=== PATIENT | female | born 1995 | race African-American/Black ===

== ENCOUNTER 2022-08-01 05:21 | Emergency (ER) | payer OTHER, SELFPAY ==
[2022-08-01 05:32] VITALS: BP 140/68; PULSE 110; O2SAT 97
[2022-08-01 05:37] VITALS: BP 133/88; PULSE 88; RESP 16; TEMP 36.8; O2SAT 99; BMI 24.8
[2022-08-01 05:43] VITALS: BP 135/88; PULSE 77; RESP 18; TEMP 36.9; O2SAT 99
--- NOTE | 2022-08-01 05:48 | PC.NURSE ---
patient came into the ER c/o having a migraine patient is sensitive to light patient is AAOX4 patient is stated she has been having pain since 2199 yesterday patient will continue to be monitored for safety
--- NOTE | 2022-08-01 06:57 | ED.HA ---
HPI - Headache General Chief Complaint: Headache Stated Complaint: delgado/nausea Time Seen by Provider: 08/01/22 06:31 Source: patient Mode of arrival: ambulatory Limitations: no limitations History of Present Illness HPI Narrative: 26-year-old female with history of anxiety and migraines presents to the ER for evaluation of a migraine that started 10:00 o'clock last night. She states she has a headache across her entire forehead. It is worse with any movement or light. She is nauseous and dry heaves but has not vomited. She denies any weakness, numbness, tingling. She states she tried a dose of ibuprofen and Tylenol with no relief last night. She came to the ER for further evaluation. She states she has been getting headaches since she was a child. She states her mother also gets headaches and has been hospitalized in the past. She states her blood pressure is usually on the lower side and was in the 140s when she came to the emergency department. She is wondering if this is also contributing to her headache. MD elicited complaint: migraine Pertinent past history: migraines Onset (ago): hour(s) (9) Time: 22:00 Onset description: gradually Location: frontal Severity: severe Quality & Timing: aching, dull and constant Exacerbating factors: exertion, movement of head/neck, light and noise Relieving factors: nothing Context: occurred at rest Associated symptoms: nausea Treatments prior to arrival: acetaminophen and ibuprofen Related Data Previous Rx's Medication Instructions Recorded vunqkfekcm-ralgxizbdsqyi-gnyfgoif 1 cap PO Q6H PRN headache #10 caps 08/01/22 50 mg-300 mg-40 mg capsule (Fioricet) Allergies Allergy/AdvReac Type Severity Reaction Status Date / Time No Known Allergies Allergy Verified 08/01/22 05:42 Review of Systems Review of Systems: Yes all other systems are reviewed and are negative PMFSH Social History Social History Alcohol intake: never Smoked in Last 30 Days: No Use of substances other than those prescribed or required for medical reasons: No Advance Directives: No Advance Directives Information Provided: Yes Patient : No Physical Exam Vital Signs: Vital Signs: Last Vital Signs Temp 98.4 F 08/01/22 05:43 Pulse 79 08/01/22 09:32 Resp 16 08/01/22 09:32 BP 93/41 L 08/01/22 09:32 Pulse Ox 98 08/01/22 09:32 O2 Del Method Room Air 08/01/22 09:32 BMI result Body Mass Index 24.8 Appearance: Alert. Oriented X3. No acute distress. Head: normocephalic, atraumatic. Eyes: Pupils equal, round and reactive to light. ENT: Pharynx normal. No tonsillar swelling or exudate. Neck: Normal inspection. Neck supple. CVS: Normal heart rate and rhythm. Pulses normal. Respiratory: No respiratory distress. Breath sounds normal. Abdomen: Soft and nontender. +BS x4 Skin: Skin warm and dry. Normal skin color. Normal skin turgor. No rashes. Extremities: No lower extremity edema. No joint swelling. Neuro/psych: Oriented X 3. No motor deficit. No sensory deficit. CN II-XII intact. Normal speech and cognition. Medications Administered Discontinued Medications Generic Name Dose Route Start Last Admin Trade Name Freq PRN Reason Stop Dose Admin Diphenhydramine HCl 50 mg 08/01/22 06:52 08/01/22 07:26 Diphenhydramine Hcl 50 Mg/Ml Vial IVPUSH 08/01/22 06:53 50 mg ONCE ONE Administration Sodium Chloride 1,000 mls @ 999 mls/hr 08/01/22 07:00 08/01/22 07:26 Ns IV 08/01/22 08:00 999 mls/hr .Q1H1M GHASSAN Administration Ketorolac Tromethamine 30 mg 08/01/22 06:52 08/01/22 07:25 Ketorolac Tromethamine 30 Mg/Ml Vial IVPUSH 08/01/22 06:53 30 mg ONCE ONE Administration Metoclopramide HCl 10 mg 08/01/22 06:52 08/01/22 07:26 Metoclopramide Hcl 10 Mg/2 Ml Vial IVPUSH 08/01/22 06:53 10 mg ONCE ONE Administration Sumatriptan Succinate 6 mg 08/01/22 09:48 08/01/22 10:08 Sumatriptan Succinate 6 Mg/0.5 Ml Vial SUBCUT 08/01/22 09:49 6 mg ONCE ONE Administration Medical Decision Making Medical Decision Making MDM Narrative: 26-year-old female presents to the ER for evaluation of headache that started last night at 10:00. It is associated with nausea photophobia. She has no neurological deficits. She has not had a migraine in a very long time. She has no neck pain or nuchal rigidity on examination. She was treated with IV Toradol, Benadryl, and Reglan with only minor improvement. She was then given Imitrex subQ with improvement. She is feeling much better. At this time she is stable for discharge home with outpatient follow-up. Will discharge with prescription for oral Fioricet p.r.n.. Patient agrees with plan. Differential Diagnosis Differential Diagnoses: The differential diagnosis associated with the presentation includes Migraine headache, cluster headache, tension headache, general headache Tests considered The following testing was considered but not selected: CT scan of the head was considered however she had improvement with medical treatment. Prescription Management I considered prescription management with: Pain Medication Chronic Conditions Patient?s care impacted by: Other (Migraine headaches) Critical Care Time Critical Care Time Critical Care Time: No Discharge Plan Discharge Clinical Impression: Migraine Patient Disposition: Home, Self-Care Instructions: Migraine Headache (ED) Additional Instructions: Take the prescribed medication as needed for headaches. Rest and drink plenty of fluids today. Follow-up with your doctor. If you develop new or worsening symptoms call 911 or come back to the ER for further evaluation. Prescriptions: New thypxuiggt-aiyeyqptukhpu-luvv [Fioricet] 50-300-40 mg capsule 1 cap PO Q6H PRN (Reason: headache) Qty: 10 0RF Stand Alone Forms: Work/School Release
[2022-08-01] MEDS: Ketorolac Tromethamine 30 MG/ML VIAL IVPUSH (07:25)
[2022-08-01] MEDS: diphenhydrAMINE HCL 50 MG/ML VIAL IVPUSH (07:26)
[2022-08-01] MEDS: Metoclopramide HCl 10 MG/2 ML VIAL IVPUSH (07:26)
[2022-08-01] MEDS: 0.9 % Sodium Chloride 1,000 ML 999 ML IV (07:26)
[2022-08-01 09:32] VITALS: BP 93/41; PULSE 79; RESP 16; O2SAT 98
[2022-08-01] MEDS: SUMAtriptan succinate 6 MG/0.5 ML VIAL SUBCUT (10:08)
== END 2022-08-01 13:01 | disposition home or self-care (01) ==
PROVIDERS: Emergency Provider Internal Medicine
DX: G43.909 Migraine, unspecified, not intractable, without status migrainosus (principal); R11.2 Nausea with vomiting, unspecified
CPT/HCPCS: 96372; 96374; 96375; 99284; 99285; J1200; J1885; J2765; J3030

== ENCOUNTER 2025-02-11 03:01 | Emergency (ER) | payer OTHER, SELFPAY ==
--- NOTE | 2025-02-11 | ECG_ITS ---
Test Reason : SOB Blood Pressure : */* mmHG Vent. Rate : 72 BPM Atrial Rate : 72 BPM P-R Int : 162 ms QRS Dur : 90 ms QT Int : 374 ms P-R-T Axes : 42 27 23 degrees QTcB Int : 409 ms Normal sinus rhythm with sinus arrhythmia Normal ECG No previous ECGs available Referred By: Generic ED Physician Electronically Signed By: MARIO BRUCE MD
--- NOTE | ~2025-02-11 | XR_ITS ---
CLINICAL HISTORY: sob Chest X-ray, 2 Views COMPARISON: None provided FINDINGS: No consolidation. No pleural effusion. No pneumothorax. No cardiomegaly. No acute fracture. IMPRESSION: No acute findings. This document has been electronically signed by: John Becerril MD on 02/11/2025 04:00:56
--- NOTE | ~2025-02-11 | CT_ITS ---
EXAMINATION: CT CHEST ANGIOGRAPHY WITH IV CONTRAST INDICATION: dyspnea, surgery with blood thinner non comp COMPARISON: Correlation is made with PA and lateral views of the chest performed earlier in the day. TECHNIQUE: Helical CT scan of the chest was performed following administration of intravenous contrast (65 mL Omnipaque 350). The contrast bolus was timed to optimally opacify the pulmonary arteries. Thin sections were obtained through the pulmonary arteries. Coronal and sagittal reformatted images were generated. 3D/MIP reconstructed images are also obtained and reviewed. This CT exam was performed with one or more of the following dose reduction techniques: automated exposure control, adjustment of the mA and/or kV according to patient size, use of iterative reconstruction technique. DLP: 312 mGy-cm CHEST: THYROID: The thyroid gland is unremarkable. PULMONARY ARTERIES: No intraluminal filling defects are identified within the pulmonary arteries to suggest pulmonary emboli. LUNGS: The lungs are clear. MEDIASTINUM: There is no mediastinal lymphadenopathy. JAMES: There is no hilar lymphadenopathy. CARDIOVASCULATURE: The heart is normal in size. There is no pericardial effusion. The thoracic aorta is normal in caliber. DEGREE OF CORONARY CALCIFICATION: not evaluable, due to dense contrast in the coronary arteries. PLEURA: There is no pleural effusion. No pneumothorax. MAIN AIRWAYS: The mainstem bronchi and proximal branches are patent. AXILLA: There is no axillary lymphadenopathy. UPPER ABDOMEN: The visualized portions of the liver, spleen, and adrenals are unremarkable. BONES AND SOFT TISSUES: Unremarkable. CT/CT angio chest PE protocol IMPRESSION: No evidence of pulmonary emboli. Unremarkable CTA of the chest. Electronically signed by: Mio Sawant MD 02/11/2025 11:11 AM [facility]
[2025-02-11 03:05] VITALS: BP 120/58; PULSE 94; RESP 18; TEMP 36.5; O2SAT 100; BMI 33.5
[2025-02-11 05:18] VITALS: BP 109/67; PULSE 86; RESP 16; TEMP 36.8; O2SAT 100
[2025-02-11 05:32] LABS: Resp Syncy Virus RNA Qual PCR NEGATIVE (Negative); SARS COV2 PCR INHOUSE NEGATIVE (Negative)
--- NOTE | 2025-02-11 05:41 | ED.SOB ---
HPI - SOB/Dyspnea General Chief Complaint: Dyspnea Stated Complaint: SOB Time Seen by Provider: 02/11/25 04:39 Source: patient Mode of arrival: ambulatory Limitations: no limitations History of Present Illness ED Provider: Dr. Ivette Fernandez HPI Narrative: 29-year-old female who was well until ~20:00 last night when she noticed sudden shortness of breath while talking with a coworker at work. She went home at 23:00, took a hot shower for steam, and used her rescue inhaler (previously prescribed after a prior surgery); this gave partial relief. She laid down but symptoms persisted. Around 01:30 she developed left-sided anterior chest tightness described as ?thundering,? worse with inspiration. No preceding exertion, stress, or typical anxiety triggers. Took Klonopin for anxiety and Motrin for discomfort without improvement. Presented to ED when symptoms did not improve. Additional history: congestion on Friday that resolved; past three days produced greenish phlegm without fever. Denies current cough, nausea, vomiting, diarrhea, abdominal pain. No leg swelling or calf pain. Reports sensation of something ?stuck? in throat currently. Known anxiety; childhood asthma only. No other chronic medical problems. Minor gastric procedure for pancreatitis on first Friday; was given Xarelto post-op but discontinued after ~1 week (did not complete recommended 6 weeks). Related Data Previous Rx's ?Medication ?Instructions ?Recorded szaiqojbmn-tgbffjmaxbaxf-vxzjrzol 1 tab PO Q6H PRN headache #10 tabs 08/01/22 50 mg-325 mg-40 mg tablet potassium chloride 20 mEq oral 20 meq PO BID #30 ea 02/11/25 packet prednisone 50 mg tablet 50 mg PO DAILY 5 days #5 tabs 02/11/25 Allergies Allergy/AdvReac Type Severity Reaction Status Date / Time No Known Allergies Allergy Verified 02/11/25 03:07 [facility] Social History Social History Alcohol intake: never Smoked in Last 30 Days: No Use of substances other than those prescribed or required for medical reasons: No Advance Directives: No Patient : No Physical Exam Vital Signs: Vital Signs: Last Vital Signs Temp 98.3 F 02/11/25 08:17 Pulse 100 02/11/25 08:17 Resp 14 02/11/25 08:17 BP 105/49 L 02/11/25 08:17 Pulse Ox 98 02/11/25 08:17 O2 Del Method Room Air 02/11/25 08:17 BMI result Body Mass Index 33.5 Course Reevaluation(s) Reevaluation #1: 8:37 AM 02/11/2025 (Dr. Gianni Brewster): D-dimer positive, hypokalemic, patient updated, we will obtain CTA, in October had gastric release for plantar fasciitis, was supposed to be on blood thinners but states did not take them Medications Administered Discontinued Medications Generic Name Dose Route Start Last Admin Trade Name Freq PRN Reason Stop Dose Admin Albuterol Sulfate 2.5 mg/ 0 mg 02/11/25 06:16 02/11/25 06:29 Albuterol/Ipratropium 3 ml INHALE 02/11/25 06:17 1 dose ONCE ONE Administration Diazepam 2 mg 02/11/25 06:16 02/11/25 06:34 Diazepam 2 Mg Tablet PO 02/11/25 06:17 2 mg ONCE ONE Administration Iohexol 100 ml 02/11/25 10:44 02/11/25 10:44 Iohexol 350 Mg/Ml 100 Ml Infus..Btl IV 02/11/25 10:45 65 ml ONCE ONE Administration Potassium Chloride 10 meq 02/11/25 08:35 02/11/25 09:20 Potassium Chloride Er 10 Meq Tablet.Er PO 02/11/25 08:36 10 meq ONCE ONE Administration Potassium Chloride 40 meq 02/11/25 08:35 02/11/25 09:20 Potassium Chloride Packet 20 Meq Packet PO 02/11/25 08:36 40 meq ONCE ONE Administration Prednisone 50 mg 02/11/25 06:16 02/11/25 06:34 Prednisone 10 Mg Tablet PO 02/11/25 06:17 50 mg ONCE ONE Administration Medical Decision Making Medical Decision Making MDM Narrative: 29-year-old female with acute onset shortness of breath and pleuritic chest discomfort. Normal vitals, normal ECG, clear lungs, flu negative. Differential discussed with patient includes viral upper/lower respiratory infection vs. early bronchitis with reactive airway component, asthma exacerbation, anxiety-related symptoms; pulmonary embolism felt unlikely clinically but discussed with shared decision making. Problem #1: Pleuritic chest pain / Shortness of breath (suspected viral bronchitis vs. reactive airway) Assessment: Sudden onset last night; pleuritic quality; exam clear; O2 sat 100 %. Likely inflammatory/reactive process associated with recent URI exposure; asthma component possible. Plan: - Administer nebulized bronchodilator treatment in ED; monitor response. - Initiate short course of oral prednisone; staff counselor patient to take with food. - Provide additional analgesia for chest discomfort (medication administered in ED, unspecified). - May provide medication to help relax chest muscles if needed, per provider-patient discussion. - Discharge home if symptoms improve and vitals remain stable; return for worsening shortness of breath, chest pain, or new symptoms. Problem #2: Rule out Pulmonary Embolism Assessment: Recent minor surgery ~3 months ago with brief Xarelto course; otherwise low-risk per PERC; vitals and exam not suggestive; patient informed of options (D-dimer/CTA vs. watchful waiting). Plan: - Shared decision making: defer immediate D-dimer/CTA; proceed with symptomatic treatment. - Instruct patient to return immediately for worsening symptoms or new risk features. Problem #3: Generalized Anxiety Disorder Assessment: History of anxiety; current episode differs from typical panic attacks. Plan: - Reassurance provided. Follow-up: Return to ED for increased chest pain, shortness of breath, fever, or any new/worsening symptoms. Otherwise, follow up with PCP within the next few days. Differential Diagnosis Differential Diagnoses: The differential diagnosis associated with the presentation includes (as above) Admission/Observation Consideration of admission/observation: Escalation of care including admission/observation considered Lab Data MDM Lab Attestation statement: I reviewed the patient's lab results. 02/11/25 07:53 02/11/25 07:53 Labs: Lab Results 02/11/25 02/11/25 Range/Units 04:51 07:53 WBC 8.0 (4.8-10.8) X10*3/uL RBC 4.06 L (4.20-5.50) X10*6/uL Hgb 11.6 L (12.0-16.0) g/dl Hct 35.6 L (37.0-47.0) % MCV 87.7 (80.0-98.0) fL MCH 28.6 (27.0-33.0) pg MCHC 32.6 (31.0-35.0) g/dl RDW 13.9 (11.0-16.0) % Plt Count 192 (160-400) X10*3/uL MPV 9.7 (9.4-12.3) fL Immature Gran % (Auto) 0.2 (0.0-0.4) % Neut % (Auto) 63.8 (45-73) % Lymph % (Auto) 28.7 (20-40) % Gordon % (Auto) 5.8 (2-11) % Eos % (Auto) 1.4 (0-4) % Baso % (Auto) 0.1 (0-2) % Lymph # (Auto) 2.3 (1.2-4.9) X10*3/uL Gordon # (Auto) 0.5 (0.1-1.2) X10*3/uL Eos # (Auto) 0.1 (0.0-0.4) X10*3/uL Baso # (Auto) 0.0 (0.0-0.2) X10*3/uL Abs Immat Gran (auto) 0.02 (0.00-0.03) X10*3/uL Absolute Neuts (auto) 5.1 (2.0-8.3) x10*3/uL Absolute Nucleated RBC 0.000 (0.0-0.012) X10*3/uL Nucleated RBC % (auto) 0.0 (0.0-0.2) /100WBC D-Dimer High Sensitivty 357 NG/ML Sodium 141 (135-145) mmol/L Potassium 2.9 L* (3.3-5.1) mmol/L Chloride 112 H (96-108) mmol/L Carbon Dioxide 22 (22-29) mmol/L Anion Gap 10 L (12-20) BUN 10 (9-16) mg/dL Creatinine 0.66 (0.5-1.4) mg/dL Estim Creat Clear Calc 135.4 Estimated GFR > 60 Random Glucose 101 (60-115) mg/dL Calcium 8.5 (8.4-10.2) mg/dL Magnesium 1.7 (1.6-2.6) mg/dL Total Bilirubin 0.1 (0.0-1.0) mg/dL AST 26 (5-31) U/L ALT 39 H (0-31) U/L Alkaline Phosphatase 50 (39-117) U/L Troponin I High Sens < 2.7 (<3.5-17.0) ng/L Total Protein 6.2 L (6.5-8.0) g/dL Albumin 4.0 (3.5-5.0) g/dL TSH 3.16 (0.32-4.0) uIU/mL Beta HCG, Quant < 2 mIU/mL Influenza Type A (PCR) NEGATIVE (Negative) Influenza Type B (PCR) NEGATIVE (Negative) RSV RNA Qual (PCR) NEGATIVE (Negative) SARS-CoV-2 RNA (RT-PCR) NEGATIVE (Negative) Independent Interpretation I performed an independent interpretation of an: EKG and Plain X-Ray Interpretation: My independent interpretation of the chest x-ray reveals no consolidations, pulmonary edema, pleural effusion, pneumothorax, obvious bony abnormalities. My independent interpretation of the ECG reveals normal sinus rhythm with rate of 72, normal axis, normal intervals, no ST elevations or depressions to suggest ischemic changes, no previous for comparison Radiology Impression Discussion of test interpretation with radiology: I have reviewed the radiologist's reading. External Record Review External record reviewed: Inpatient record Prescription Management I considered prescription management with: Pain Medication Chronic Conditions Patient?s care impacted by: Other (Asthma, anxiety and depression) Discharge Plan Discharge Clinical Impression: Acute dyspnea, Hypokalemia Patient Disposition: Home, Self-Care Instructions: Dyspnea (ED) Additional Instructions: DIAGNOSIS & TREATMENT: You were seen in the Emergency Department for your chest discomfort. Your potassium was slightly low, continue using potassium as prescribed, please use potassium rich foods you can look him up the multiple, you have had CAT scan without any blood clots, and the rest of the blood work EKG has been reassuring WHEN YOU SHOULD BE SEEN NEXT: Please follow-up with your primary care provider within the next 2-3 days for reevaluation of your symptoms. WHEN TO RETURN TO THE ED: Monitor your symptoms closely and return to the emergency department immediately for any new/worsening symptoms including: Worsening chest pain, difficulty breathing, fevers greater than 100 degrees, passing out, any new symptom that concerns you. Call 911 with any medical emergency. Prescriptions: New prednisone 50 mg tablet 50 mg PO DAILY 5 Days Qty: 5 0RF potassium chloride 20 mEq packet 20 meq PO BID Qty: 30 0RF No Action iyhjloioxe-meycuwtdaskmq-cawd 50-325-40 mg tablet 1 tab PO Q6H PRN (Reason: headache) Qty: 10 0RF Print Language: Upper Sorbian
--- OUTSIDE RECORDS SUMMARY | 2025-02-11 05:49 | XMS_ITS | Clinical Summary ---
Author Organization [facility] Address [facility] [employer] [address] [place] [phone] Phone Care Team Providers Care Manager Merchandising Name Role Phone Casimiro Wasserman MD Primary Care Provider + Allergies Active Allergy Reactions Criticality Noted Date Comments Red Dye 06/23/2019 Medications tretinoin (RETIN-A) 0.025 % creamIndication s:Acne vulgaris After applying moisturizer, apply pea sized amount to entire face every other night x 2 wks, then every night as tolerated. 45 g 2 1 Active clindamycin (CLEOCIN T) 1 % lotionIndicatio ns:Acne vulgaris Apply topically every morning. 60 mL 1 Active benzoyl peroxide 5 % topical cleanserIndicat ions:Acne vulgaris Apply topically daily. 1 Bottle 2 1 Active Active Problems No known active problems Social History Tobacco Use Types Packs/Day Years Used Date Smoking Tobacco: Never Assessed Education Answer Date Recorded Are you interested in more education? Not on ashley e 06/14/2022 Are you concerned about learning? Not on file 06/14/2022 No 06/14/2022 No 06/14/2022 Digital Access Answer Date Recorded No 07/15/2022 No 07/15/2022 Reliable internet access at home? Not on file 07/15/2022 Device with a working camera? Not on file Comments Unknown Sex and Gender Information Value Date Recorded Sex Assigned at Female 07/12/2019 11:01 AM EDT Legal Sex Female 8:26 PM EDT Gender Identity Female 07/12/2019 11:01 AM EDT Sexual Orientation Straight 07/12/2019 11 :01 AM EDT Plan of Treatment Health Maintenance Due Date Last Done Comments Adult Td,Tdap Booster 1995 DEPRESSION SCREENING 2007 SMOKING Hx and SMOKELESS TOBACCO SCREENING 08/12/2008 HEPATITIS C SCREENING 08/12/2013 HIV ONE-TIME SCREENING (18-6 5 YEARS) 08/12/2013 PAP SMEAR 08/12/2016 INFLUENZA VACCINE (#1) 2024 , 11/17/2018 COVID-19 VACCINE (2024-2 6 season) 2024 HEPATITIS A VACCINES Aged Out No long er eligible based on patient's age to complete this topic HIB VACCINES Aged Out No longer eligi ble based on patient's age to complete this topic MENINGOCOCCAL VACCINES (ACWY) Aged Out No longer eligible based on patient's age to complete this topic MENINGOCOCCAL VACCINES (B) Aged Out N o longer eligible based on patient's age to complete this topic PNEUMOCOCCAL VACCINES (0-49 years) Aged Out No longer eligible b ased on patient's age to complete this topic Medical Devices Not on file [facility] [employer] [facility] [place] [address] [place] [address] [facility] [address] CHOICE [facility] Care Teams Manager Merchandising Relationship Specialty Start Date End Date Casimiro Wasserman MD [address] [place] [address] [place] [address] PCP - General Internal Medicine 06/23/19 Additional Source Comments The information contained in this document represents components of the legal health record. It is not the complete legal health record.[facility]
--- OUTSIDE RECORDS SUMMARY | 2025-02-11 05:50 | XMS_ITS | Encounter Summary ---
Author Organization [facility] Address [address] [place] [address] Care Team Providers Care Director Of Reservations Name Role Phone Casimiro Wasserman MD Primary Care Provider Unavail able Margot Palomares APRN Primary Care Provider [phone] Encounter Details Date Type Department Care Team (Late st Contact Info) Description 05/30/2023 Scanned Document [facility] Department of Internal Medicine [address] [place] [phone] Casimiro Wasserman MD Social History Tobacco Use Types Packs/Day Years Used Date Smoking Tobacco: Never Smokeless Tobacco: Never Alcohol Use Standard Drinks/Week Comments Never 0 (1 standard drink = 0.6 oz pur e alcohol) Comments No Sex and Gender Information Value Date Recorded Sex Assigned at Female 04/19/2023 1:27 PM EST Legal Sex Female 11:32 AM EDT Gender Identity Female 04/19/2023 1:27 PM EST Sexual Orientation Heterosexual (straight) 04/18 1:27 PM EST documented as of this encounter Plan of Treatment Upcoming Encounters Date Type Department Care Team (Late st Contact Info) Description 02/22/2025 3:30 PM EST Office Visit [facility] [address] [facility] [address] [place] [address] Nancy Pineda APRN [address] [facility] [address] [place] [address] 03/10/2025 2:45 PM EST Office Visit [facility] [place] [address] [facility] [address] [place] [address] Josephine Lovelace MD [address] [facility] [address] [place] [address] documented as of this encounter Visit Diagnoses Not on filedocumented in this encounter Care Teams Director Of Reservations Relationship Specialty Start Date End Date Casimiro Wasserman MD PCP - General 05/09/24 Margot Palomares, YAHIR [address] [place] [address] PCP - General Internal Medicine 05/10/24 documented as of this encounter
--- OUTSIDE RECORDS SUMMARY | 2025-02-11 05:50 | XMS_ITS | Encounter Summary ---
Author Organization [facility] Address [address] [place] [address] Care Team Providers Care Assistant Portfolio Manager Name Role Phone Casimiro Wasserman MD Primary Care Provider Unavail able Margot Palomares APRN Primary Care Provider [phone] Encounter Details Date Type Department Care Team (Late st Contact Info) Description 07/03/2022 Scanned Document [facility] Department of Internal Medicine [address] [phone] Casimiro Wasserman MD Social History Tobacco Use [...] PM EST [facility] Visit [facility] [address] [place] [address] Nancy Pineda APRN [address] [facility] 100 [place] [address] 03/10/2025 2:45 PM EST Office Visit [facility] [place] [address] [facility] [address] [place] [address] Josephine Lovelace MD [address] [facility] [address] [place] [address] documented as of this encounter Visit Diagnoses Not on filedocumented in this encounter Care Teams Assistant Portfolio Manager Relationship Specialty Start Date End Date Casimiro Wasserman MD PCP - General 05/09/24 Margot Palomares, YAHIR [address] [place] [address] PCP - General Internal Medicine 05/10/24 documented as of this encounter
--- OUTSIDE RECORDS SUMMARY | 2025-02-11 05:50 | XMS_ITS | Encounter Summary ---
Author Organization [facility] Address [address] [place] [address] Care Team Providers Care Duco Polisher Name Role Phone Casimiro Wasserman MD Primary Care Provider Unavail able Margot Palomares APRN Primary Care Provider [phone] Encounter Details Date Type Department Care Team (Late st Contact Info) Description 07/28/2023 Scanned Document [facility] Department of Internal Medicine [address] [place] [phone] Casimiro Wasserman MD Social History Tobacco Use [...] PM EST Office Visit [facility] [address] [facility] [address] [place] [address] Nancy Pineda APRN [address] [facility] 100 [place] [address] 03/10/2025 2:45 PM EST Office Visit [facility] [place] [address] [facility] [address] [place] [address] Josephine Lovelace MD [address] [place] [address] documented as of this encounter Visit Diagnoses Not on filedocumented in this encounter Care Teams Duco Polisher Relationship Specialty Start Date End Date Casimiro Wasserman MD PCP - General 05/09/24 Margot Palomares, YAHIR [address] [place] [address] PCP - General Internal Medicine 05/10/24 documented as of this encounter
--- OUTSIDE RECORDS SUMMARY | 2025-02-11 05:50 | XMS_ITS | Encounter Summary ---
Author Organization [facility] Address [address] [place] [address] Care Team Providers Care Food Clerk Name Role Phone Casimiro Wasserman MD Primary Care Provider Unavail able Margot Palomares APRN Primary Care Provider [phone] Encounter Details Date Type Department Care Team (Late st Contact Info) Description 07/16/2023 Scanned Document [facility] Physicians Department of Physiatry [place] [address] [facility] [address] [place] [address] Casimiro Wasserman MD Social History Tobacco Use [...] PM EST [facility] [address] [place] [address] Nancy Pineda APRN [address] [facility] 100 [place] [address] 03/10/2025 2:45 PM EST Office Visit [facility] Plastic & Reconstructive Surgery [place] [address] [facility] [address] [place] [address] Josephine Lovelace MD [address] [facility] [address] [place] [address] documented as of this encounter Visit Diagnoses Not on filedocumented in this encounter Care Teams Food Clerk Relationship Specialty Start Date End Date Casimiro Wasserman MD PCP - General 05/09/24 Margot Palomares, YAHIR [address] [place] [address] PCP - General Internal Medicine 05/10/24 documented as of this encounter
--- OUTSIDE RECORDS SUMMARY | 2025-02-11 05:50 | XMS_ITS | Clinical Summary ---
Author Organization [facility] Address [address] [place] [address] Care Team Providers Care Sight Effects Specialist Name Role Phone Margot Palomares APRN Primary Care Provider [phone] Allergies Active Allergy Reactions Criticality Noted Date Comments Red Dye #40 (Allura Red) Hives,Other (See Comments) Medium 06/23/2019 Trigger for tourettes Other reaction(s): trigger for Tourette's syndrome Rivaroxaban Other (See Comments) Low 11/03/2024 Medications Ventolin HFA 108 (90 Base) MCG/ACT inhaler INHALE 2 PUFFS EVERY 4 HOURS 06/25/19 23 Active valACYclovir (VALTREX) 500 MG tablet Take 1 tablet (500 mg total) by mouth daily. 04/01/19 24 Active gabapentin (NEURONTIN) 300 MG capsuleIndicatio ns:Neck pain on left side Take 1 capsule (300 mg total) by mouth 3 times daily (every 8 hours) as needed for pain. 30 capsule 11 05/05/19 24 Active citalopram (CeleXA) 40 MG tablet Take by mouth. Activ e OLANZapine (ZyPREXA) 5 MG tablet Oral for 30 Days Active propranolol (INDERAL) 20 MG tablet Oral for 30 Days Active clonazePAM (KlonoPIN) 2 MG tablet TAKE 1 TABLET AT BEDTIME AND 1/2 TABLET TWICE DAILY NEEDED. 07/31/19 25 Active methocarbamol (ROBAXIN) 500 MG tabletIndication s:Plantar fasciitis, bilateral Take 1 tablet (500 mg total) by mouth 2 (two) times a day as needed for muscle spasms. 10 tablet 10/16/19 25 Active Additional Information Patient not taking.Reported on 12/29/2024 HYDROcodone-acet aminophen (NORCO) 5-325 mg per tabletIndication s:Plantar fasciitis, bilateral,Foot pain, bilateral Take 1 tablet by mouth 4 times daily (every 6 hours) as needed for severe pain. Max Daily Amount: 4 tablets 28 tablet 10/25/19 25 Active Additional Information Patient not taking.Reported on 12/29/2024 cephALEXin (KEFLEX) 250 mg capsuleIndicatio ns:Recurrent UTI Take 1 capsule (250 mg total) by mouth daily as needed (post coital). 30 capsule 2 12/30/19 25 026 Active phenazopyridine (PYRIDIUM) 200 MG tabletIndication s:UTI symptoms Take 1 tablet (200 mg total) by mouth 3 (three) times a day in the morning, mid-day and early evening. 10 tablet 12/31/19 25 Active phenazopyridine (PYRIDIUM) 100 MG tabletIndication s:UTI symptoms Take 1 tablet (100 mg total) by mouth 3 (three) times a day in the morning, mid-day and early evening. 10 tablet 12/31/19 25 Active tirzepatide (Zepbound) 12.5 mg/0.5 mL subcutaneous injectionIndicat ions:Morbid obesity (HCC),Class 3 severe obesity due to excess calories without serious comorbidity with body mass index (BMI) of 40.0 to 44.9 in adult (HCC),BMI 40.0-44.9, adult (HCC) Inject 0.5 mL (12.5 mg total) under the skin every 7 days. 2 mL 01/14/20 25 Active tirzepatide (Zepbound) 12.5 mg/0.5 mL subcutaneous injectionIndicat ions:Morbid obesity (HCC),Class 3 severe obesity due to excess calories without serious comorbidity with body mass index (BMI) of 40.0 to 44.9 in adult (HCC),BMI 40.0-44.9, adult (HCC) Inject 0.5 mL (12.5 mg total) under the skin every 7 days. 2 mL 12/16/19 25 025 Discontinu ed(Reorder ) cefpodoxime (VANTIN) 200 MG tabletIndication s:UTI symptoms,Acute UTI Take 1 tablet (200 mg total) by mouth 2 (two) times a day. 20 tablet 01/04/20 25 025 Active Problems Problem Noted Date Diagnosed Date Annual physical exam 10/15/2024 Stress incontinence, female 05/10/2024 Assessment & Plan (05/10/2024 8:08 AM EDT): Stress incontinence since having children. Requesting referral to pelvic floor speicaist. Anxiety 06/04/2022 06/04/2022 Genital herpes simplex 06/04/2022 Hyperhidrosis 06/04/2022 06/04/2022 Overview (06/04/2022): S/P Botox injections Hyperpigmentation of skin 06/04/20222022 IBS (irritable bowel syndrome) 06/04/2022 0 06/04/2022 Idiopathic insomnia 06/04/2022 06/04/2022 Migraine 06/04/2022 06/04/2022 Plantar fasciitis, bilateral 06/04/2022 Assessment & Plan (05/10/2024 8:19 AM EDT): Chronic and followed by podiatry and currently attending physical therapy with moderate improvement in symptom. Had received injections and steroid tapers with moderate improvement in symptoms. Declines prescription for NSAID at this time. Will monitor Vitamin D deficiency 06/04/2022 06/04/2022 Resolved Problems Problem Noted Date Diagnosed Date Resolved Date History of asthma 07/26/2024 07/26/2024 History of Timbo de la Tourette's syndrome 07/26/2024 07/26/2024 History of seizure 07/26/2024 Prediabetes 07/26/2024 07/26/2024 Yeast infection 12/15/2023 05/10/2024 Assessment & Plan (12/15/2023 10:36 AM EDT): Will treat empirically given similar symptoms to prior yeast infections - Fluconazole 150mg once ADHD (attention deficit hype ractivity disorder) 06/04/2022 06/04/2022 06/04/2022 Anemia 06/04/2022 06/04/2022 07/26/2024 Asthma 06/04/2022 06/04/2022 06/04/2022 Overview (06/04/2022): Last used inhaler in 4th grade BMI 40.0-44.9, adult 06/04/2022 06/04/2022 025 Assessment & Plan (06/29/2024 8:43 PM EDT): Tolerating Zepbound weekly without side effects and has started Zepbound 5mg . Noticing an improvement in control of cravings. Engaging in exercise and modifying diet . Recommend continued dietary modification and increase in daily exercise. Will order routine labs and continue current dose Zepbound 5mg weekly Assessment & Plan (05/10/2024 8:21 AM EDT): Uncontrolled. Formerly had been on Zepbound and had some difficulties accessing the medication due to insurance problems. Will resume treatment with Tirzepatide 2.5mg weekly x one month. RTO in three weeks or sooner as needed. Will order labs at that time. Assessment & Plan (12/15/2023 10:36 AM EDT): Will resume tirzepatide (she has been off it, so will start at low dose to minimize GI side effects). Discussed timing of dose to help avoid GI distress at work. - Tirzepatide 2.5mg weekly - If tolerating, can increase to 5mg weekly after a month Cough 06/04/2022 06/04/2022 07/31/2023 Encounter for laboratory gene moran for COVID-19 virus 06/04/2022 06/04/2022 07/31/2023 Facial edema 06/04/2022 06/04/2022 07/31/2023 Fatigue 06/04/2022 06/04/2022 07/31/2023 Foot pain 06/04/2022 06/04/2022 07/31/2023 Hidradenitis suppurativa 06/04/2022 06/04/2022 Hyperlipidemia 06/04/2022 06/04/2022 11/19/2024 Idiopathic hypersomnia 06/04/2022 06/04/202206/04 Inclusion cyst 06/04/2022 06/04/2022 06/04/2022 Kidney stone 06/04/2022 06/04/2022 06/04/2022 Loss of appetite 06/04/2022 06/04/2022 06/04/2022 Low ferritin level 06/04/2022 06/04/2022 Macrocytic anemia during 06/04/2022202207/26/2024 Severe obesity 06/04/2022 06/04/2022 12/15/2023 06/04/2022 06/04/2022 06/04/2022 Tourette's syndrome 06/04/2022 06/04/2022 07/27/19 25 Vitamin B12 deficiency 06/04/2022 06/04/202211/19 Wart 06/04/2022 06/04/2022 05/10/2024 Encounters Date Type Department Care Team Description 01/24/2025 Scanned Document [facility] Physicians Department of Internal Medicine [place] [address] [place] [phone] Edelmira Crawford PA-C 01/20/2025 Scanned Document [facility] [address] [place] [address] Bethany Thorne 01/04/2025 9:00 AM EST [facility] [address] [place] [address] Nancy Pineda APRN Plantar fasciitis, bilateral (Primary Dx) 12/29/2024 9:00 AM EST Office Visit [facility] [place] [address] [place] [address] Funmi Aranda MD Cystocele, midline (Primary Dx); UTI symptoms; Recurrent UTI; Female stress incontinence; Kidney stones 12/22/2024 Documentation [facility] Department of Internal Medicine [place] [address] [place] [address] Lilliana Miller PA 11/19/2024 Documentation [facility] Department of Internal Medicine [place] [address] [place] [address] Margot Palomares, YAHIR Prior Authorization (Zepbound) 11/16/2024 11:00 AM EDT [facility] [address] [place] [address] Nancy Pineda APRN Plantar fasciitis, bilateral (Primary Dx) from Last 3 Months Immunizations Immunization Administration Dates Next Due HPV, Unspecified 10/08/2011 Hep B, Unspecified 08/15/2020,07/11/2020 Hepatitis B 08/15/2020,07/11/2020 Influenza Inactivated/Split Preservative Free IM 11/02/2021,10/26/2020,11/24/2019 Influenza Virus Trivalent Sp lit Vaccine (MDV) IM 11/02/2021,10/26/2020,11/24/2019 Influenza, Quadrivalent (FLU ARIX, AFLURIA, FLULAVAL, FLUZONE) Preservative Free IM 11/26/2018 Tdap 01/18/2020 Family History Medical History Relation Name Comments Anxiety disorder Father Brian Shine Multiple myeloma Father Brian Shine Diabetes Maternal Grandmother Harmony Sales Heart disease Mother Nalini Hyperlipidemia Mother Nalini Diabetes Paternal Grandmother Eliz Shine Relation Name Status Comments Father Brian Shine Maternal Grandmother Harmony Henrry Mother Nalini Paternal Grandmother Eliz Shine Social History Tobacco Use Types Packs/Day Years Used Date Smoking Tobacco: Never Smokeless Tobacco: Never Tobacco Cessation:Counseling Given: Not Answered Alcohol Use Standard Drinks/Week Comments Never 0 (1 standard drink = 0.6 oz pur e alcohol) PHQ-2 Answer Date Recorded PHQ-2 Total Score 0 10/11/2024 Comments No Sex and Gender Information Value Date Recorded Sex Assigned at Female 04/19/2023 1:27 PM EST Legal Sex Female 11:32 AM EDT Gender Identity Female 04/19/2023 1:27 PM EST Sexual Orientation Heterosexual (straight) 04/18 1:27 PM EST Last Filed Vital Signs Vital Sign Reading Time Taken Comments Blood Pressure 110/65 11/03/2024 10:09 PM EDT Pulse 89 11/03/2024 10:09 PM EDT Temperature 36.8 C (98.3 F) 11/03/2024 7:01 PM EDT Respiratory Rate 16 11/03/2024 10:09 PM EDT Oxygen Saturation 98% 11/03/2024 10:09 PM EDT Inhaled Oxygen Concentration - - Weight 96.2 kg (212 lb 1.6 oz) 10/11/2024 7:48 A M EDT Height 162.6 cm (5' 4 ) 10/11/2024 7:48 AM EDT Body Mass Index 36.41 10/11/2024 7:48 AM EDT Plan of Treatment Upcoming Encounters Date Type Department Care Team (Late st Contact Info) Description 02/22/2025 3:30 PM EST [facility] [address] [place] [address] Nancy Pineda, YAHIR [address] [facility] 100 [place] [address] 03/10/2025 2:45 PM EST Office Visit [facility] Plastic & Reconstructive Surgery [place] [address] [facility] [address] [place] [address] Josephine Lovelace MD 399 [facility] 210 [place] [address] Health Maintenance Due Date Last Done Comments HIV Screening 08/12/2008 HPV Vaccines (2 - 3-dose series) 11/05/2011 10/08/2011 Hepatitis B Vaccines (3 of 3 - 19+ 3-dose series) 01/11/2021 08/15/2020, 08/15/2020, 07/11/2020, Additional history exists Influenza Vaccine 09/17/2024 11/02/2021, , 10/26/2020, Additional history exists COVID-19 Vaccine ( - 2024- season) 2024 Pap Smear (Ages 21-65) 06/23/2027 5 (Previously Completed) DTaP/Tdap/Td Vaccines (2 - Td or Tdap) 01/17/2030 01/18/2020 Hepatitis C Virus Screening 10/04/2037 Postponed from 1995 (Not Indicated) Pneumococcal Vaccine: Pediatric (0-5 Years) and At-Risk Patients (6 to 49 Years) Aged Out No longer eligible based on patient's age to complete this topic Procedures Procedure Name Priority Date/Time Associated Diagnosis Comments IL INJECTION 1 TENDON SHEATH/LIGAMENT APONEUROSIS Routine 01/04/2025 9:00 AM EST Plantar fasciitis, bilateral URINE CULTURE Routine 12/30/2024 11:02 AM EST UTI symptoms URINE CULTURE Routine 12/29/2024 9:59 AM EST Recurrent UTI POCT URINALYSIS DIPSTICK, AUTOMATED Routine 12/29/2024 9:24 AM EST UTI symptoms from Last 3 Months Results * IL INJECTION 1 TENDON SHEATH/LIGAMENT APONEUROSIS (01/04/2025 9:00 AM EST) Narrative Nancy Pineda APRN - 01/04/2025 9:00 AM EST Nancy Pineda APRN 01/04/2025 9:18 AM Right foot plantar fascia cortisone injection on 01/04/2025 9:00 AM Indications: pain Details: 22 G needle, plantar approach Medications: 6 mg betamethasone acetate-betamethasone sodium phosphate 6 (3-3) MG/ML Outcome: tolerated well, no immediate complications Procedure, treatment alternatives, risks and benefits explained, specific risks discussed. PLAN Patient will transition to the 10 week protocol pathway. Approximately 15 minutes were spent in reassurance, education and outlining the treatment plan for the next 3 months of recovery. Recommendations are made for continue progressing with formal physical therapy, may gradually progress with physical activity and exercise as her symptoms allow, ice, and wear supportive shoe wear, and she may return to work beginning on 01/16/2025. Would like to see the patient in 6 weeks for a 4-month postop check. X-rays not needed postoperatively. us Nancy Pineda DOCTOR OF PODIATRIC MEDICINE PROCEDURE/MINOR SURGICAL ORDERABLES Final Result * (ABNORMAL) Urine Culture (12/30/2024 11:02 AM EST) Only the most recent of2 resultswithin the time period is included. Culture SEE NOTE(A) IOCOM Comment: CULTURE, URINE, ROUTINE Micro Number: [id number] Test Status: Final Specimen Source: Urine, clean catch Specimen Quality: Adequate Result: Greater than 100,000 CFU/mL of Escherichia coli E.coli INT ADAL AMOX/CLAVULANATE S 4 AMP/SULBACTAM I 16 CEFAZOLIN I 4 CEFEPIME S <=0.12 CEFTAZIDIME S <=0.5 CEFTRIAXONE S <=0.25 CIPROFLOXACIN I 0.5 GENTAMICIN S <=1 IMIPENEM S <=0.25 LEVOFLOXACIN I 1 MEROPENEM S <=0.25 NITROFURANTOIN S <=16 PIP/TAZOBACTAM S <=4 TRIMETHOPRIM/SULFA R >=320 S = Susceptible I = Intermediate R = Resistant NS = Not susceptible SDD = Susceptible Dose Dependent * = Not Tested NR = Not Reported NN = See Therapy Comments 12/30/2024 11:0 2 AM EST 12/30/2024 11:02 AM EST Funmi Aranda MD LAB AMB MICRO ORDERABLE S Final Result Performing Organization Address City/State/[facility] Co de Phone Number [employer] [address] [place] [phone] * (ABNORMAL) POCT Urinalysis Dipstick, Automated (12/29/2024 9:24 AM EST) Source, UA Clean Catch Color, UA Yellow & Clear Yellow & Clear, Yellow Clarity, UA Clear Clear Glucose, UA Negative Negative Bilirubin, UA Moderate (++)(A) Negative Ketones, UA Small (15)(A) Negative Spec Grav, UA >=1.030(A) 1.005, 1.010, 1.015, 1.020, 1.025 Blood, UA Negative Negative pH, UA 6.0 5.0, 5.5, 6.0, 6.5, 7.0, 7.5, 8.0 Protein, UA 100 (++)(A) Negative Urobilinogen, UA 0.2 0.2, 1.0 Nitrite, UA Negative Negative Leukocyte Esterase, UA Negative Negative Urine Output, UA 20 cc Lot Number [id number] [employer] [place] Pass Urine 12/29/2024 9:24 AM EST Funmi Aranda MD POINT OF CARE TEST GIUSEPPE MCNEIL Final Result from Last 3 Months Insurance [employer] [facility] Care Teams Sight Effects Specialist Relationship Specialty Start Date End Date Margot Palomares APRN [address] [place] [address] PCP - General Internal Medicine 05/10/24
--- OUTSIDE RECORDS SUMMARY | 2025-02-11 05:50 | XMS_ITS | Encounter Summary ---
Author Organization [facility] Address [address] [place] [address] Care Team Providers Care Mop Handle Assembler Name Role Phone Casimiro Wass[place] MD Primary Care Provider Unavail able Margot Palomares APRN Primary Care Provider [phone] Encounter Details Date Type Department Care Team (Late st Contact Info) Description 04/30/2023 Scanned Document [facility] Department of Internal Medicine [address] [phone] Casimiro W[place] MD Social History Tobacco Use [...] PM EST [facility] Visit [facility] [address] [place] [address] Nancy Pineda APRN 31 [facility] 100 [place] [address] 03/10/2025 2:45 PM EST Office Visit [facility] Plastic & Reconstructive Surgery [place] [address] [facility] [address] [place] [address] Josephine Lovelace MD [address] [facility] [address] [place] [address] documented as of this encounter Visit Diagnoses Not on filedocumented in this encounter Care Teams Mop Handle Assembler Relationship Specialty Start Date End Date Casimiro Wass[place] MD PCP - General 05/09/24 Margot Palomares, YAHIR [address] [place] [address] PCP - General Internal Medicine 05/10/24 documented as of this encounter
--- OUTSIDE RECORDS SUMMARY | 2025-02-11 05:50 | XMS_ITS | Encounter Summary ---
Author Organization [facility] Address [address] [place] [address] Care Team Providers Care Outdoor Adventure Instructor Name Role Phone Margot Palomares APRN Primary Care Provider [phone] Encounter Details Date Type Department Care Team (Late Contact Info) Description 11/03/2024 Scanned Document [facility] [address] [facility] [address] [facility]7 [place] [address] Provider, Generic Social History Tobacco Use Types Packs/Day Years [...] PM EST documented as of this encounter Functional Status * Level of Risk per Screen Answer Date of Assessment Author Low Risk 11/03/2024 7:00 PM EDT Cyn Nayak RN documented as of this encounter Plan of Treatment Upcoming Encounters Date Type Department Care Team (Late Contact Info) Description 02/22/2025 3:30 PM EST [facility] Visit [facility] [address] [place] [address] Nancy Pineda APRN 31 [facility] 100 [place] [address] 03/10/2025 2:45 PM EST Office Visit [facility] Plastic & Reconstructive Surgery [place] [address] [facility] 210 [place] [address] Josephine Lovelace MD 399 [facility] [address] [place] [address] documented as of this encounter Visit Diagnoses Not on filedocumented in this encounter Care Teams Outdoor Adventure Instructor Relationship Specialty Start Date End Date Margot Palomares, YAHIR [address] [place] [address] PCP - General Internal Medicine 05/10/24 documented as of this encounter
--- OUTSIDE RECORDS SUMMARY | 2025-02-11 05:50 | XMS_ITS | Patient Health Record ---
Author Organization [facility] Address [address] [place] [address] Care Team Providers Care Ship'S Pilot Name Role Phone Radha Martínez Unavailable [phone] Allergies No Known Allergies Reason For Referral Reason lenzy derm; skin lolita h Diagnosis 1 Skin rash (R21) Referral Organization [facility] [address] Referring Provider First Name Radha Referring Provider Last Name Svrcek Referring Provider Speciality Internal M edicine Referred Provider Specialty Dermatology General Notes [address] [place] [address] Dr. Waleska blankenship, (p) [phone], (f) [phone] Clinical Notes Mehreen Sommers 09:24:11 AM > referral faxed with attachments Referral Priority Routine Medications Medication SIG (Take, Route, Frequency, Duration) Notes Start Date End Date Status Propranolol HCl 20 MG Tablet Oral; Duration: 30 Days Not- Taking Zepbound 5 MG/0.5ML Solution Auto-injector 0.5 mL Subcutaneous Active Citalopram Hydrobromide 40 MG Tablet Oral; Duration: 90 Days Acti ve KlonoPIN Active clonazePAM 1 MG Tablet Oral; Duration: 30 Days Active CeleXA Active OLANZapine 5 MG Tablet Oral; Duration: 30 Days Active Problems Problem Type SNOMED Code ICD Code Onset Dates Problem Status W/U Status Risk Notes Problem Prediabetes (722270084) Prediabetes (R73.03) Active confirmed Problem Morbid obesity (979066354) Morbid obesity (E66.01) Active confirmed Problem Skin rash (906045024) Skin rash (R21) Active confirmed Problem Anxiety (16045778) Anxiety (F41.9) Active confirmed Problem Adult health examination (365260120) Adult general medical exam (Z00.00) Active confirmed Problem Diabetes mellitus screening (926002978) Diabetes mellitus screening (Z13.1) Active confirmed Problem Obese class II (544196203850118 ) BMI 39.0-39.9,adult (Z68.39) Active confirmed Problem Endocrine/metabo lic screening (996502909) Encounter for screening for endocrine disorder (Z13.29) Active confirmed Problem Lipid screening (898501239) Lipid screening (Z13.220) Active confirmed Problem History of seizure (2058997102) History of seizure (Z87.898) Active confirmed Problem History of asthma (020699878) History of asthma (Z87.09) Active confirmed Problem Anemia (269664159) Mild anemia (D64.9) Active confirmed Problem History of Timbo de la Tourette's syndrome (Z87.898) Active confirmed Vital Signs Heart Rate 99 /min 06/14/2024 Oximetry 99 % 06/14/2024 Blood pressure diastolic 84 mm Hg 06/14/2024 Height 65 in 06/14/2024 Blood pressure systolic 126 mm Hg 06/14/2024 Weight 237 lbs 06/14/2024 BMI 39.43 kg/m2 06/14/2024 Encounters Encounter Location Date Provider Diagnosis [facility] [address] [place] [id number] 06/14/2024 Radharyan Ibanezcek Prediabetes R73.03 ; Mild anemia D64.9 ; History of seizure Z87.898 ; History of Timbo de la Tourette's syndrome Z87.898 ; Skin rash R21 ; History of asthma Z87.09 ; Anxiety F41.9 ; Morbid obesity E66.01 and BMI 39.0-39.9,adult Z68.39 Assessments Encounter Date Diagnosis (ICD Code) Assessment Notes Treatment Notes Treatment Clinical Notes Section Notes 06/14/2024 Prediabetes (ICD-10 - R73.03) #Pre-Diabetes. Reports history of prediabetes based on A1c in the past. She is due for updated lab work. She has been working on weight reduction and lifestyle modifications. Just recently started back on Zepbound 5 mg. Will get updated labs and schedule annual physical. #Mild anemia. Reports history in the past we will check updated labs follow-up pending results. #Hx of seizure disorder and Tourette's. In childhood. Reports no seizures since age 10. Has not been on medication and is not currently followed by neurology. #Skin rash. Bilateral breast with hyperpigmented patches. Question of folliculitis versus other. Given personal and family history will refer to dermatology. #History of asthma. Typically triggered by allergies. Uses albuterol as needed. #Anxiety. History of significant anxiety currently followed by psychiatry in [place]. Currently on Klonopin 3 to 4 mg a day. Has had increased symptoms recently and Celexa dose was recently adjusted. She does admit to inconsistent use however. We did discuss importance of compliance especially with these medications. She was also recently prescribed olanzapine which she has not yet started. Not currently followed by therapist. #Morbid obesity. Recently started back on Zepbound this past month. We will get updated labs. Discussed weight management consultation if she would like to continue on this medication. She is working towards weight reduction and is hoping to have a breast reduction. They would like her to be at 175 pounds prior to surgery. Case discussed with collaborating physician Linda Lorenz who reviewed the assessment and plan. Chart, medications, labs, vital signs reviewed. Dictation was accomplished with the use of Typekit voice recognition software, prone to medical misidentifications and grammatical errors. This is unintentional and the practitioner does try to identify and correct these, but some could still be present. Please do not hesitate to contact practitioner for clarification. All questions answered to patients satisfaction. Patient verbalized understanding of diagnosis and treatments explained. To call sooner prior to next visit it any questions/concerns arise. 06/14/2024 Mild anemia (ICD-10 - D64.9) #Pre-Diabetes. Reports history of prediabetes based on A1c in the past. She is due for updated lab work. She has been working on weight reduction and lifestyle modifications. Just recently started back on Zepbound 5 mg. Will get updated labs and schedule annual physical. #Mild anemia. Reports history in the past we will check updated labs follow-up pending results. #Hx of seizure disorder and Tourette's. In childhood. Reports no seizures since age 10. Has not been on medication and is not currently followed by neurology. #Skin rash. Bilateral breast with hyperpigmented patches. Question of folliculitis versus other. Given personal and family history will refer to dermatology. #History of asthma. Typically triggered by allergies. Uses albuterol as needed. #Anxiety. History of significant anxiety currently followed by psychiatry in [place]. Currently on Klonopin 3 to 4 mg a day. Has had increased symptoms recently and Celexa dose was recently adjusted. She does admit to inconsistent use however. We did discuss importance of compliance especially with these medications. She was also recently prescribed olanzapine which she has not yet started. Not currently followed by therapist. #Morbid obesity. Recently started back on Zepbound this past month. We will get updated labs. Discussed weight management consultation if she would like to continue on this medication. She is working towards weight reduction and is hoping to have a breast reduction. They would like her to be at 175 pounds prior to surgery. Case discussed with collaborating physician Linda Lorenz who reviewed the assessment and plan. Chart, medications, labs, vital signs reviewed. Dictation was accomplished with the use of Typekit voice recognition software, prone to medical misidentifications and grammatical errors. This is unintentional and the practitioner does try to identify and correct these, but some could still be present. Please do not hesitate to contact practitioner for clarification. All questions answered to patients satisfaction. Patient verbalized understanding of diagnosis and treatments explained. To call sooner prior to next visit it any questions/concerns arise. 06/14/2024 History of seizure (ICD-10 - Z87.898) #Pre-Diabetes. Reports history of prediabetes based on A1c in the past. She is due for updated lab work. She has been working on weight reduction and lifestyle modifications. Just recently started back on Zepbound 5 mg. Will get updated labs and schedule annual physical. #Mild anemia. Reports history in the past we will check updated labs follow-up pending results. #Hx of seizure disorder and Tourette's. In childhood. Reports no seizures since age 10. Has not been on medication and is not currently followed by neurology. #Skin rash. Bilateral breast with hyperpigmented patches. Question of folliculitis versus other. Given personal and family history will refer to dermatology. #History of asthma. Typically triggered by allergies. Uses albuterol as needed. #Anxiety. History of significant anxiety currently followed by psychiatry in [place]. Currently on Klonopin 3 to 4 mg a day. Has had increased symptoms recently and Celexa dose was recently adjusted. She does admit to inconsistent use however. We did discuss importance of compliance especially with these medications. She was also recently prescribed olanzapine which she has not yet started. Not currently followed by therapist. #Morbid obesity. Recently started back on Zepbound this past month. We will get updated labs. Discussed weight management consultation if she would like to continue on this medication. She is working towards weight reduction and is hoping to have a breast reduction. They would like her to be at 175 pounds prior to surgery. Case discussed with collaborating physician Linda Lorenz who reviewed the assessment and plan. Chart, medications, labs, vital signs reviewed. Dictation was accomplished with the use of Typekit voice recognition software, prone to medical misidentifications and grammatical errors. This is unintentional and the practitioner does try to identify and correct these, but some could still be present. Please do not hesitate to contact practitioner for clarification. All questions answered to patients satisfaction. Patient verbalized understanding of diagnosis and treatments explained. To call sooner prior to next visit it any questions/concerns arise. 06/14/2024 History of Timbo de la Tourette's syndrome (ICD-10 - Z87.898) #Pre-Diabetes. Reports history of prediabetes based on A1c in the past. She is due for updated lab work. She has been working on weight reduction and lifestyle modifications. Just recently started back on Zepbound 5 mg. Will get updated labs and schedule annual physical. #Mild anemia. Reports history in the past we will check updated labs follow-up pending results. #Hx of seizure disorder and Tourette's. In childhood. Reports no seizures since age 10. Has not been on medication and is not currently followed by neurology. #Skin rash. Bilateral breast with hyperpigmented patches. Question of folliculitis versus other. Given personal and family history will refer to dermatology. #History of asthma. Typically triggered by allergies. Uses albuterol as needed. #Anxiety. History of significant anxiety currently followed by psychiatry in [place]. Currently on Klonopin 3 to 4 mg a day. Has had increased symptoms recently and Celexa dose was recently adjusted. She does admit to inconsistent use however. We did discuss importance of compliance especially with these medications. She was also recently prescribed olanzapine which she has not yet started. Not currently followed by therapist. #Morbid obesity. Recently started back on Zepbound this past month. We will get updated labs. Discussed weight management consultation if she would like to continue on this medication. She is working towards weight reduction and is hoping to have a breast reduction. They would like her to be at 175 pounds prior to surgery. Case discussed with collaborating physician Linda Lorenz who reviewed the assessment and plan. Chart, medications, labs, vital signs reviewed. Dictation was accomplished with the use of Typekit voice recognition software, prone to medical misidentifications and grammatical errors. This is unintentional and the practitioner does try to identify and correct these, but some could still be present. Please do not hesitate to contact practitioner for clarification. All questions answered to patients satisfaction. Patient verbalized understanding of diagnosis and treatments explained. To call sooner prior to next visit it any questions/concerns arise. 06/14/2024 Skin rash (ICD-10 - R21) #Pre-Diabetes. Reports history of prediabetes based on A1c in the past. She is due for updated lab work. She has been working on weight reduction and lifestyle modifications. Just recently started back on Zepbound 5 mg. Will get updated labs and schedule annual physical. #Mild anemia. Reports history in the past we will check updated labs follow-up pending results. #Hx of seizure disorder and Tourette's. In childhood. Reports no seizures since age 10. Has not been on medication and is not currently followed by neurology. #Skin rash. Bilateral breast with hyperpigmented patches. Question of folliculitis versus other. Given personal and family history will refer to dermatology. #History of asthma. Typically triggered by allergies. Uses albuterol as needed. #Anxiety. History of significant anxiety currently followed by psychiatry in [place]. Currently on Klonopin 3 to 4 mg a day. Has had increased symptoms recently and Celexa dose was recently adjusted. She does admit to inconsistent use however. We did discuss importance of compliance especially with these medications. She was also recently prescribed olanzapine which she has not yet started. Not currently followed by therapist. #Morbid obesity. Recently started back on Zepbound this past month. We will get updated labs. Discussed weight management consultation if she would like to continue on this medication. She is working towards weight reduction and is hoping to have a breast reduction. They would like her to be at 175 pounds prior to surgery. Case discussed with collaborating physician Linda Lorenz who reviewed the assessment and plan. Chart, medications, labs, vital signs reviewed. Dictation was accomplished with the use of Typekit voice recognition software, prone to medical misidentifications and grammatical errors. This is unintentional and the practitioner does try to identify and correct these, but some could still be present. Please do not hesitate to contact practitioner for clarification. All questions answered to patients satisfaction. Patient verbalized understanding of diagnosis and treatments explained. To call sooner prior to next visit it any questions/concerns arise. 06/14/2024 History of asthma (ICD-10 - Z87.09) #Pre-Diabetes. Reports history of prediabetes based on A1c in the past. She is due for updated lab work. She has been working on weight reduction and lifestyle modifications. Just recently started back on Zepbound 5 mg. Will get updated labs and schedule annual physical. #Mild anemia. Reports history in the past we will check updated labs follow-up pending results. #Hx of seizure disorder and Tourette's. In childhood. Reports no seizures since age 10. Has not been on medication and is not currently followed by neurology. #Skin rash. Bilateral breast with hyperpigmented patches. Question of folliculitis versus other. Given personal and family history will refer to dermatology. #History of asthma. Typically triggered by allergies. Uses albuterol as needed. #Anxiety. History of significant anxiety currently followed by psychiatry in [place]. Currently on Klonopin 3 to 4 mg a day. Has had increased symptoms recently and Celexa dose was recently adjusted. She does admit to inconsistent use however. We did discuss importance of compliance especially with these medications. She was also recently prescribed olanzapine which she has not yet started. Not currently followed by therapist. #Morbid obesity. Recently started back on Zepbound this past month. We will get updated labs. Discussed weight management consultation if she would like to continue on this medication. She is working towards weight reduction and is hoping to have a breast reduction. They would like her to be at 175 pounds prior to surgery. Case discussed with collaborating physician Linda Lorenz who reviewed the assessment and plan. Chart, medications, labs, vital signs reviewed. Dictation was accomplished with the use of Typekit voice recognition software, prone to medical misidentifications and grammatical errors. This is unintentional and the practitioner does try to identify and correct these, but some could still be present. Please do not hesitate to contact practitioner for clarification. All questions answered to patients satisfaction. Patient verbalized understanding of diagnosis and treatments explained. To call sooner prior to next visit it any questions/concerns arise. 06/14/2024 Anxiety (ICD-10 - F41.9) #Pre-Diabetes. Reports history of prediabetes based on A1c in the past. She is due for updated lab work. She has been working on weight reduction and lifestyle modifications. Just recently started back on Zepbound 5 mg. Will get updated labs and schedule annual physical. #Mild anemia. Reports history in the past we will check updated labs follow-up pending results. #Hx of seizure disorder and Tourette's. In childhood. Reports no seizures since age 10. Has not been on medication and is not currently followed by neurology. #Skin rash. Bilateral breast with hyperpigmented patches. Question of folliculitis versus other. Given personal and family history will refer to dermatology. #History of asthma. Typically triggered by allergies. Uses albuterol as needed. #Anxiety. History of significant anxiety currently followed by psychiatry in [place]. Currently on Klonopin 3 to 4 mg a day. Has had increased symptoms recently and Celexa dose was recently adjusted. She does admit to inconsistent use however. We did discuss importance of compliance especially with these medications. She was also recently prescribed olanzapine which she has not yet started. Not currently followed by therapist. #Morbid obesity. Recently started back on Zepbound this past month. We will get updated labs. Discussed weight management consultation if she would like to continue on this medication. She is working towards weight reduction and is hoping to have a breast reduction. They would like her to be at 175 pounds prior to surgery. Case discussed with collaborating physician Linda Lorenz who reviewed the assessment and plan. Chart, medications, labs, vital signs reviewed. Dictation was accomplished with the use of Typekit voice recognition software, prone to medical misidentifications and grammatical errors. This is unintentional and the practitioner does try to identify and correct these, but some could still be present. Please do not hesitate to contact practitioner for clarification. All questions answered to patients satisfaction. Patient verbalized understanding of diagnosis and treatments explained. To call sooner prior to next visit it any questions/concerns arise. 06/14/2024 Morbid obesity (ICD-10 - E66.01) #Pre-Diabetes. Reports history of prediabetes based on A1c in the past. She is due for updated lab work. She has been working on weight reduction and lifestyle modifications. Just recently started back on Zepbound 5 mg. Will get updated labs and schedule annual physical. #Mild anemia. Reports history in the past we will check updated labs follow-up pending results. #Hx of seizure disorder and Tourette's. In childhood. Reports no seizures since age 10. Has not been on medication and is not currently followed by neurology. #Skin rash. Bilateral breast with hyperpigmented patches. Question of folliculitis versus other. Given personal and family history will refer to dermatology. #History of asthma. Typically triggered by allergies. Uses albuterol as needed. #Anxiety. History of significant anxiety currently followed by psychiatry in [place]. Currently on Klonopin 3 to 4 mg a day. Has had increased symptoms recently and Celexa dose was recently adjusted. She does admit to inconsistent use however. We did discuss importance of compliance especially with these medications. She was also recently prescribed olanzapine which she has not yet started. Not currently followed by therapist. #Morbid obesity. Recently started back on Zepbound this past month. We will get updated labs. Discussed weight management consultation if she would like to continue on this medication. She is working towards weight reduction and is hoping to have a breast reduction. They would like her to be at 175 pounds prior to surgery. Case discussed with collaborating physician Linda Lorenz who reviewed the assessment and plan. Chart, medications, labs, vital signs reviewed. Dictation was accomplished with the use of Typekit voice recognition software, prone to medical misidentifications and grammatical errors. This is unintentional and the practitioner does try to identify and correct these, but some could still be present. Please do not hesitate to contact practitioner for clarification. All questions answered to patients satisfaction. Patient verbalized understanding of diagnosis and treatments explained. To call sooner prior to next visit it any questions/concerns arise. 06/14/2024 BMI 39.0-39.9,adul t (ICD-10 - Z68.39) #Pre-Diabetes. Reports history of prediabetes based on A1c in the past. She is due for updated lab work. She has been working on weight reduction and lifestyle modifications. Just recently started back on Zepbound 5 mg. Will get updated labs and schedule annual physical. #Mild anemia. Reports history in the past we will check updated labs follow-up pending results. #Hx of seizure disorder and Tourette's. In childhood. Reports no seizures since age 10. Has not been on medication and is not currently followed by neurology. #Skin rash. Bilateral breast with hyperpigmented patches. Question of folliculitis versus other. Given personal and family history will refer to dermatology. #History of asthma. Typically triggered by allergies. Uses albuterol as needed. #Anxiety. History of significant anxiety currently followed by psychiatry in [place]. Currently on Klonopin 3 to 4 mg a day. Has had increased symptoms recently and Celexa dose was recently adjusted. She does admit to inconsistent use however. We did discuss importance of compliance especially with these medications. She was also recently prescribed olanzapine which she has not yet started. Not currently followed by therapist. #Morbid obesity. Recently started back on Zepbound this past month. We will get updated labs. Discussed weight management consultation if she would like to continue on this medication. She is working towards weight reduction and is hoping to have a breast reduction. They would like her to be at 175 pounds prior to surgery. Case discussed with collaborating physician Linda Lorenz who reviewed the assessment and plan. Chart, medications, labs, vital signs reviewed. Dictation was accomplished with the use of Typekit voice recognition software, prone to medical misidentifications and grammatical errors. This is unintentional and the practitioner does try to identify and correct these, but some could still be present. Please do not hesitate to contact practitioner for clarification. All questions answered to patients satisfaction. Patient verbalized understanding of diagnosis and treatments explained. To call sooner prior to next visit it any questions/concerns arise. Plan Of Treatment Pending Test Test Name Order Date TSH 06/14/2024 UA WITH CULTURE IF INDICATED 06/14/2024 LIPID PANEL, STANDARD 06/14/2024 COMPREHENSIVE METABOLIC PANEL 06/14/2024 CBC (INCLUDES DIFF/PLT) 06/14/2024 HEMOGLOBIN A1c 06/14/2024 Insurance Providers Payer Name Payer Address Payer Phone Subscriber Number Group Number Insured Name Patient Relationship to Insured Coverage Start Date Coverage End Date [facility] [address] [place] [id number] Cielo Hernández Self - patient is the insured Medical (General) History Surgical History Surgery Date(Month/Year) colonoscopy 2017 c section 2020 tonsillectomy
--- OUTSIDE RECORDS SUMMARY | 2025-02-11 05:50 | XMS_ITS | Encounter Summary ---
Author Organization [facility] Address [address] [place] [address] Care Team Providers Care Measurement Advisor Name Role Phone Margot Palomares APRN Primary Care Provider [phone] Encounter Details Date Type Department Care Team (Late st Contact Info) Description 01/24/2025 Scanned Document [facility] Department [facility] Medicine [place] 160 [facility] [address] [place] [phone] Edelmira Crawford PA-C 115 [place] [address] Social History Tobacco Use Types Packs/Day Years [...] PM EST Office Visit [facility] 7 [facility] [address] [place] [address] Nancy Pineda APRN 31 [facility] 100 [place] [address] 03/10/2025 2:45 PM EST Office Visit [facility] Plastic & Re[facility]ive Surgery [place] 399 [facility] 210 [place] [address] Josephine Lovelace MD 399 [facility] [address] 210 [place] [address] documented as of this encounter Visit Diagnoses Not on filedocumented in this encounter Care Teams Measurement Advisor Relationship Specialty Start Date End Date Margot Palomares APRN [address] [place] [address] PCP - General Internal Medicine 05/10/24 documented as of this encounter
--- OUTSIDE RECORDS SUMMARY | 2025-02-11 05:50 | XMS_ITS | Encounter Summary ---
Author Organization [facility] Address 100 [place] [address] Care Team Providers Care Publisher Assistant Name Role Phone Casimiro Wasserman MD Primary Care Provider Unavail able Margot Palomares APRN Primary Care Provider [phone] Encounter Details Date Type Department Care Team (Late st Contact Info) Description 08/08/2023 Scanned Document [facility] Department of Internal Medicine [address] [place] [phone] Casimiro Wasserman MD Social History Tobacco Use [...] PM EST Office Visit [facility] [place] 7 [facility] [address] [place] [address] Nancy Pineda APRN 31 [facility] 100 [place] [address] 03/10/2025 2:45 PM EST Office Visit [facility] Plastic & Reconstructive Surgery [place] 399 [facility] [address] [place] [address] Josephine Lovelace MD 399 [facility] [address] 210 [place] [address] documented as of this encounter Visit Diagnoses Not on filedocumented in this encounter Care Teams Publisher Assistant Relationship Specialty Start Date End Date Casimiro Wasserman MD PCP - General 05/09/24 Margot Palomares, YAHIR [address] [place] [address] PCP - General Internal Medicine 05/10/24 documented as of this encounter
--- OUTSIDE RECORDS SUMMARY | 2025-02-11 05:50 | XMS_ITS | Encounter Summary ---
Author Organization [facility] Address [address] [place] [address] Care Team Providers Care Certified Nurse Operating Room Name Role Phone Casimiro Wasserman MD Primary Care Provider Unavail able Margot Palomares APRN Primary Care Provider [phone] Encounter Details Date Type Department Care Team (Late st Contact Info) Description 04/21/2023 Scanned Document [facility] Department of Ear, Nose, and Throat [address] [phone] Haroon Barrett MD [address] [place] [address] Social History Tobacco Use Types Packs/Day Years [...] PM EST [facility] Visit [facility] [address] [place] [address] Nancy Pineda APRN [address] [address] 03/10/2025 2:45 PM EST Office Visit [facility] Plastic & Reconstructive Surgery [place] 399 [facility] 210 [place] [address] Josephine Lovelace MD 399 [facility] [address] [place] [address] documented as of this encounter Visit Diagnoses Not on filedocumented in this encounter Care Teams Certified Nurse Operating Room Relationship Specialty Start Date End Date Casimiro Wasserman MD PCP - General 05/09/24 Margot Palomares APRN [address] [place] [address] PCP - General Internal Medicine 05/10/24 documented as of this encounter
--- OUTSIDE RECORDS SUMMARY | 2025-02-11 05:50 | XMS_ITS | Encounter Summary ---
Author Organization [facility] Address [address] [place] [address] Care Team Providers Care Business Performance Manager Name Role Phone Margot Palomares APRN Primary Care Provider [phone] Encounter Details Date Type Department Care Team (Late st Contact Info) Description 01/20/2025 Scanned Document Orthopedic [address] [address] [place] [address] Social History Tobacco Use Types Packs/Day Years [...] 3:30 PM EST [facility] [address] [place] [address] Nancy Pineda APRN [address] [address] 03/10/2025 2:45 PM EST Office Visit [facility] Plastic & Reconstructive Surgery [place] 399 [facility] [address] [place] [phone] Josephine Lovelace MD 399 [facility] [address] 210 [place] [address] documented as of this encounter Visit Diagnoses Not on filedocumented in this encounter Care Teams Business Performance Manager Relationship Specialty Start Date End Date Margot Palomares, YAHIR [address] [place] [address] PCP - General Internal Medicine 05/10/24 documented as of this encounter
--- OUTSIDE RECORDS SUMMARY | 2025-02-11 05:50 | XMS_ITS | Encounter Summary ---
Author Organization [facility] Address [address] [place] [address] Care Team Providers Care Dial Mounter Name Role Phone Margot Palomares FOREST NURSERY SUPERVISOR Primary Care Provider Encounter Details Date Type Department Care Team (Late st Contact Info) Description 07/01/2024 Scanned Document [facility] Department of Internal Medicine [address] [place] [phone] Margot Palomares, FOREST NURSERY SUPERVISOR 160 [place] [address] Social History Tobacco Use Types Packs/Day Years [...] PM EST Office Visit [facility] [address] [place] [address] Nancy Pineda APRN 31 [facility] 100 [place] [address] 03/10/2025 2:45 PM EST Office Visit [facility] Plastic & Reconstructive Surgery [place] [address] [facility] [address] [place] [address] Josephine Lovelace MD 399 [facility] [address] 210 [place] [address] documented as of this encounter Visit Diagnoses Not on filedocumented in this encounter Care Teams Dial Mounter Relationship Specialty Start Date End Date Margot Palomares, FOREST NURSERY SUPERVISOR [address] [place] [address] PCP - General Internal Medicine 05/10/24 documented as of this encounter
--- OUTSIDE RECORDS SUMMARY | 2025-02-11 05:50 | XMS_ITS | Encounter Summary ---
Author Organization [facility] Address 100 [place] [address] Care Team Providers Care Gambling Cashier Name Role Phone Casimiro Wasserman MD Primary Care Provider Unavail able Margot Palomares APRN Primary Care Provider [phone] Encounter Details Date Type Department Care Team (Late st Contact Info) Description 09/23/2023 Scanned Document [facility] Department of Internal Medicine [address] [place] [phone] Casimiro Wasserman MD Social History Tobacco Use [...] PM EST Office Visit [facility] [place] 7 [facility] [address] [place] [address] Nancy Pineda APRN 31 [facility] 100 [place] [address] 03/10/2025 2:45 PM EST Office Visit [facility] Plastic & Reconstructive Surgery [place] 399 [facility] [address] [place] [address] Josephine Lovelace MD 399 [facility] [address] [place] [address] documented as of this encounter Visit Diagnoses Not on filedocumented in this encounter Care Teams Gambling Cashier Relationship Specialty Start Date End Date Casimiro Wasserman MD PCP - General 05/09/24 Margot Palomares, YAHIR [address] [place] [address] PCP - General Internal Medicine 05/10/24 documented as of this encounter
--- OUTSIDE RECORDS SUMMARY | 2025-02-11 05:50 | XMS_ITS ---
Author Name [facility] Results Test Name/Text Value Interpretation Date Range Source Bacteria Ur Cult SEE NOTE Abnormal 01/02/2025 QU EST Bacteria Ur Cult SEE NOTE 12/31/2024 QU EST S pyo DNA Throat Ql HARRY+probe Detected Abnormal 11/04/2024 - [facility] Glucose SerPl-mCnc 82.0 mg/dL 11/04/2024 65 - 99 [facility] Albumin/Glob SerPl 1.5 Ratio 11/04/2024 1 - 3 [facility] ALT SerPl-cCnc 10.0 U/L 11/04/2024 10 - 50 [facility] T Chloride SerPl-sCnc 106.0 mmol/L 11/04/2024 98 - 1 07 [facility] Sodium SerPl-sCnc 142.0 mmol/L 11/04/2024 136 - 14 5 [facility] Calcium SerPl-mCnc 9.4 mg/dL 11/04/2024 8.7 - 10.5 [facility] Albumin SerPl-mCnc 4.4 g/dL 11/04/2024 3.5 - 5 [facility] AST SerPl-cCnc 14.0 U/L 11/04/2024 10 - 50 [facility] T Globulin Ser Calc-mCnc 2.9 g/dL 11/04/2024 1.5 - 3.9 [facility] Bilirub SerPl-mCnc 0.4 mg/dL 11/04/2024 0.2 - 1 [facility] CO2 SerPl-sCnc 25.0 mmol/L 11/04/2024 22 - 33 HH CCT Creat SerPl-mCnc 0.67 mg/dL 11/04/2024 0.4 - 1.1 H HCCT Prot SerPl-mCnc 7.3 g/dL 11/04/2024 6.3 - 8.[address] ALP SerPl-cCnc 61.0 U/L 11/04/2024 32 - 122 [facility] T Anion Gap Bld-sCnc 11.0 11/04/2024 7 - 17 [facility] BUN SerPl-mCnc 6.0 mg/dL Below low normal 11/04/2024 8 - 21 [facility] GFR/BSA.pred SerPlBld LVH-KFO-DnQRcw >90.0 11/04/2024 59 - [facility] BUN/Creat SerPl 9.0 Ratio Below low normal 11/04/2024 10 - 2 5 [facility] Potassium SerPl-sCnc 3.5 mmol/L 11/04/2024 3.4 - 5 .3 [facility] Heteroph Ab Ser Ql Negative 11/04/2024 - [facility] Platelet num Bld Auto 241.0 Thou/uL 11/04/2024 150 - 450 [facility] Monocytes/leuk NFr Bld Auto 6.8 % 11/04/2024 [facility] MCV RBC Auto 89.0 fL 11/04/2024 80 - 100 [facility] Hgb Bld-mCnc 12.6 g/dL 11/04/2024 11.7 - 15.7 [facility] T Eosinophil num Bld Auto 0.05 Thou/uL 11/04/2024 0 - 0.7 [facility] Basophils num Bld Auto 0.03 Thou/uL 11/04/2024 0 - 0.2 [facility] PMV Bld Auto 10.0 fL 11/04/2024 7.5 - 12.5 [facility] MCHC RBC Auto-mCnc 32.1 g/dL 11/04/2024 30 - 36 [facility] Neutrophils/leuk NFr Bld Auto 63.3 % 11/04/2024 [facility] Imm Granulocytes num Bld Auto 0.03 Thou/uL 11/04/2024 0 - 0.1 [facility] Imm Granulocytes/leuk NFr Bld Auto 0.3 % 11/04/2024 [facility] WBC num Bld Auto 10.0 Thou/uL 11/04/2024 4 - 11 [facility] Monocytes num Bld Auto 0.68 Thou/uL 11/04/2024 0.2 - 1.5 [facility] Basophils/leuk NFr Bld Auto 0.3 % 11/04/2024 [facility] Lymphocytes num Bld Auto 2.88 Thou/uL 11/04/2024 1 .5 - 4.5 [facility] RDW RBC Auto-Rto 13.6 % 11/04/2024 11.5 - 14.5 [facility] MCH RBC Qn Auto 28.6 pg 11/04/2024 26 - [address] Eosinophil/leuk NFr Bld Auto 0.5 % 11/04/2024 [facility] Hct VFr Bld Auto 39.2 % 11/04/2024 35 - 47 HH CCT RBC num Bld Auto 4.4 Mil/uL 11/04/2024 4 - 5.4 H [facility] Lymphocytes/leuk NFr Bld Auto 28.8 % 11/04/2024 [facility] Neutrophils num Bld Auto 6.33 Thou/uL 11/04/2024 2 - 7.5 [facility] History of Medication Use Medication Directions Dispensed Refills Start Date End Date Stat cefpodoxime (VANTIN) 200 MG tablet Take 1 tablet (200 mg total) by mouth 2 (two) times a day. 01/03/2025 active phenazopyridine (PYRIDIUM) 100 MG tablet Take 1 tablet (100 mg total) by mouth 3 (three) times a day in the morning, mid-day and early evening. 12/30/2024 active phenazopyridine (PYRIDIUM) 200 MG tablet Take 1 tablet (200 mg total) by mouth 3 (three) times a day in the morning, mid-day and early evening. 12/30/2024 active cephALEXin (KEFLEX) 250 mg capsule Take 1 capsule (250 mg total) by mouth daily as needed (post coital). 12/29/2024 active tirzepatide (Zepbound) 12.5 mg/0.5 mL subcutaneous injection Inject 0.5 mL (12.5 mg total) under the skin every 7 days. 12/15/2024 active HYDROcodone-acetamino phen (NORCO) 5-325 mg per tablet Take 1 tablet by mouth 4 times daily (every 6 hours) as needed for severe pain. Max Daily Amount: 4 tablets 10/24/2024 active methocarbamol (ROBAXIN) 500 MG tablet Take 1 tablet (500 mg total) by mouth 2 (two) times a day as needed for muscle spasms. 10/15/2024 active oxyCODONE (ROXICODONE) 5 MG immediate release tablet Take 1 tablet (5 mg total) by mouth 4 times daily (every 6 hours) as needed for severe pain. Max Daily Amount: 20 mg 10/15/2024 active rivaroxaban (XARELTO) 10 MG tablet Take 1 tablet (10 mg total) by mouth daily. 10/15/2024 active betamethasone acetate-betamethasone sodium phosphate (CELESTONE) injection 6 mg 6 mg, Intra-articular, Once PRN Procedure, Starting on Fri09/14/24 at 1530, For 1 dose 09/14/2024 completed tirzepatide (ZEPBOUND) 10 mg/0.5 mL pen-injector Inject 1 Pen (10 mg total) under the skin once a week. 08/27/2024 active clonazePAM (KlonoPIN) 2 MG tablet TAKE 1 TABLET AT BEDTIME AND 1/2 TABLET TWICE DAILY NEEDED. 07/30/2024 active norethindrone (AYGESTIN) 5 MG tablet Take 5 mg by mouth daily. 10 day 07/20/2024 active citalopram (CeleXA) 20 MG tablet Take 20 mg by mouth. 05/19/2024 active clonazePAM (KlonoPIN) 1 MG tablet Take 1 mg by mouth daily as needed. 03/24/2024 active tirzepatide (ZEPBOUND) 5 mg/0.5 mL pen-injector Inject 1 Pen (5 mg total) under the skin once a week. 10/17/2023 active gabapentin (NEURONTIN) 300 MG capsule Take 1 capsule (300 mg total) by mouth 3 times daily (every 8 hours) as needed for pain. 05/05/2023 active semaglutide (OZEMPIC) (0.25 or 0.5 mg/dose pen) prefilled pen injection Inject 0.25 mg under the skin once a week. 04/20/2023 active valACYclovir (VALTREX) 500 MG tablet Take 500 mg by mouth daily. 04/01/2023 active OMEprazole (PriLOSEC) 40 MG capsule Take 1 capsule (40 mg total) by mouth every morning before breakfast. 03/24/2023 active metroNIDAZOLE (FLAGYL) 500 MG tablet Take 1 tablet (500 mg total) by mouth 3 (three) times a day. Take with meals or food to reduce stomach upset. 07/19/2022 4 aborted predniSONE (DELTASONE) 10 MG tablet Take 3 tabs for 3 days, 2 tabs for 2 days, 1 tab for 2 days then stop 07/19/2022 4 aborted rifAXIMin (XIFAXAN) 550 MG tablet Take 1 tablet (550 mg total) by mouth every 12 (twelve) hours around the clock. 07/19/2022 4 aborted Ventolin HFA 108 (90 Base) MCG/ACT inhaler INHALE 2 PUFFS EVERY 4 HOURS 06/24/2022 active lidocaine (XYLOCAINE) 2 % solution GARGLE WITH 1 TEASPOONFUL (5ML) BY MOUTH FOR 1 TO 2 MINUTES THEN SPIT UP TO 5 TIMES A DAY FOR 4 DAYS 06/19/2022 4 aborted citalopram (CeleXA) 40 MG tablet Take by mouth. active OLANZapine (ZyPREXA) 5 MG tablet Oral for 30 Days active propranolol (INDERAL) 20 MG tablet Oral for 30 Days active Allergies Allergen Reaction Severity Comment Documented Date Source Statu s RIVAROXABAN OTHER (SEE COMMENTS) 11/03/2024 [facility] active OTHER HIVES 06/04/2022 [facility] active RED DYE HIVESHIVES Trigger for tourettes 06/04/2022 [facility] RED DYE #40 (ALLURA RED) OTHER (SEE COMMENTS) Trigger for tourettes,Othe r reaction(s): trigger for Tourette's syndrome 06/23/2019 [facility] active Problems Problem Status Onset Date Problem Type Date of Resoluti on Source Genital herpes simplex active 2022-06-04 ProblemAct [facility] Hyperhidrosis active 2022-06-04 ProblemAct [facility] T IBS (irritable bowel syndrome) active 2022-06-04 ProblemAct [facility] Plantar fasciitis, bilateral active 2022-06-04 ProblemAct [facility] Anxiety active 2022-06-04 ProblemAct [facility] Stress incontinence, female active 2024-05-10 ProblemAct [facility] Idiopathic insomnia active 2022-06-04 ProblemAct [facility] Hyperpigmentation of skin active 2022-06-04 ProblemAct [facility] Migraine active 2022-06-04 ProblemAct [facility] Vitamin D deficiency active 2022-06-04 ProblemAct [facility] Immunizations Vaccine Date Source Lot Number Status Influenza Virus Trivalent Sp lit Vaccine (MDV) IM 11/02/2021 CCT [id number] completed Influenza Virus Trivalent Sp lit Vaccine (MDV) IM 11/02/2021 CCT [id number] completed Influenza Virus Trivalent Sp lit Vaccine (MDV) IM 11/02/2021 CCT [id number] completed Influenza Virus Trivalent Sp lit Vaccine (MDV) IM 10/26/2020 CCT [id number] completed Influenza Virus Trivalent Sp lit Vaccine (MDV) IM 10/26/2020 CCT [id number] completed Influenza Virus Trivalent Sp lit Vaccine (MDV) IM 10/26/2020 CCT [id number] completed Hep B, Unspecified 08/15/2020 [facility] UNK comple flori Hep B, Unspecified 08/15/2020 [facility] UNK comple flori Hep B, Unspecified 08/15/2020 [facility] UNK comple flori Hepatitis B 08/15/2020 [facility] completed Hepatitis B 08/15/2020 [facility] completed Hepatitis B 08/15/2020 [facility] completed Hep B, Unspecified 07/11/2020 [facility] UNK comple flori Hep B, Unspecified 07/11/2020 [facility] UNK comple flori Hep B, Unspecified 07/11/2020 [facility] UNK comple flori Hepatitis B 07/11/2020 [facility] completed Hepatitis B 07/11/2020 [facility] completed Hepatitis B 07/11/2020 [facility] completed Tdap 01/18/2020 CCT [id number] completed Tdap 01/18/2020 CCT [id number] completed Tdap 01/18/2020 CCT [id number] completed Influenza Virus Trivalent Sp lit Vaccine (MDV) IM 11/24/2019 [facility] UNK completed Influenza Virus Trivalent Sp lit Vaccine (MDV) IM 11/24/2019 [facility] UNK completed Influenza Virus Trivalent Sp lit Vaccine (MDV) IM 11/24/2019 [facility] UNK completed Influenza, Quadrivalent (FLU ARIX, AFLURIA, FLULAVAL, FLUZONE) Preservative Free IM 11/26/2018 CCT completed Influenza, Quadrivalent (FLU ARIX, AFLURIA, FLULAVAL, FLUZONE) Preservative Free IM 11/26/2018 [facility] completed Influenza, Quadrivalent (FLU ARIX, AFLURIA, FLULAVAL, FLUZONE) Preservative Free IM 11/26/2018 [facility] completed HPV, Unspecified 10/08/2011 [facility] complete d HPV, Unspecified 10/08/2011 [facility] complete d Encounters Encounter Type Encounter Reason Primary Diagnosis Location Date Ambulatory Plantar fascial fibromatosis Plantar fascial fibromatosis [facility] 01/04/2025 Ambulatory [facility] 12/29/2024 Ambulatory Plantar fascial fibromatosis Plantar fascial fibromatosis [facility] 11/16/2024 Emergency Localized enlarged lymph nodes Localized enlarged lymph nodes [facility] 11/03/2024 Ambulatory Torticollis Torticollis [facility] 11/03/2024 Ambulatory Plantar fascial fibromatosis Plantar fascial fibromatosis [facility] 11/02/2024 Ambulatory MODIFY Plantar fascial fibromatosis* [facility] 10/25/2024 Ambulatory Encounter for general adult medical examination without abnormal findings Encounter for general adult medical examination without abnormal findings [facility] 10/11/2024 Ambulatory Pain Pain [facility] 09/14/2024 Ambulatory [facility] 08/17/2024 Ambulatory Pain in right foot Pain in right foot [facility] 08/17/2024 Ambulatory Follow-up Follow-up [facility] 07/26/2024 Ambulatory Weight Check Weight Check [facility] 06/21/2024 Ambulatory Stress incontinence (female) (male) Stress incontinence (female) (male) [facility] 05/10/2024 Ambulatory Body mass index (BMI) 40.0-44.9, adult Body mass index (BMI) 40.0-44.9, adult [facility] 12/15/2023 Ambulatory Hypertrophy of breast Hypertrophy of breast [facility] 10/24/2023 Ambulatory Follow-up Follow-up [facility] 09/09/2023 Ambulatory 6 WEEK FOLLOW UP 6 WEEK FOLLOW UP [facility] 05/05/2023 Ambulatory Encounter for general adult medical examination without abnormal findings Encounter for general adult medical examination without abnormal findings [facility] 04/20/2023 Ambulatory Pain in throat Pain in throat [facility] 03/24/2023 Ambulatory Pain in throat [facility] 07/12/2022 Ambulatory Plantar fascial fibromatosis [facility] 07/02/2022 Ambulatory Morbid (severe) obesity due to excess calories [facility] 06/04/2022 Care Team Organization Name Specialty Phone Email Start Date End Da te [facility] 09/17/2024 [facility] 06/22/2024 02/02/[address] [facility] CASIMIRO WASSERMAN, Primary Care 05/18/2024 02/03/[address] [facility] Primary Care 05/10/2024 [facility] W[facility]ERMAN, Primary Care 05/14/2023 4 [facility] Primary Care 10/24/2022 10/06/[address] [facility] Casimiro Wasserman Primary Care 06/04/[address] [facility] CASIMIRO WASSERMAN, Primary Care 06/04/2022 06/05/19 23
--- OUTSIDE RECORDS SUMMARY | 2025-02-11 05:50 | XMS_ITS | Encounter Summary ---
Author Organization [facility] Address [address] [place] [address] Care Team Providers Care Shipping Services Sales Representative Name Role Phone Casimiro Wasserman MD Primary Care Provider Unavail able Margot Palomares APRN Primary Care Provider [phone] Encounter Details Date Type Department Care Team (Late st Contact Info) Description 04/22/2023 Scanned Document [facility]icians Department of Ear, Nose, and Throat [address] [address] Haroon Barrett MD [address] [place] [address] Social History Tobacco Use Types Packs/Day Years [...] PM EST [facility] [address] [place] [address] Nancy Pineda APRN [address] [address] 03/10/2025 2:45 PM EST Office Visit [facility]ive Surgery [place] 399 [facility] 210 [place] [address] Josephine Lovelace MD 399 [facility] [address] [place] [address] documented as of this encounter Visit Diagnoses Not on filedocumented in this encounter Care Teams Shipping Services Sales Representative Relationship Specialty Start Date End Date Casimiro Wasserman MD PCP - General 05/09/24 Margot Palomraes APRN [address] [place] [address] PCP - General Internal Medicine 05/10/24 documented as of this encounter
--- OUTSIDE RECORDS SUMMARY | 2025-02-11 05:50 | XMS_ITS | Encounter Summary ---
Author Organization [facility] Address [address] [place] [address] Care Team Providers Care Machine Tool Technology Instructor Name Role Phone Casimiro Wasserman MD Primary Care Provider Unavail able Margot Palomares APRN Primary Care Provider Encounter Details Date Type Department Care Team (Late st Contact Info) Description 05/21/2023 Scanned Document [facility] Physicians Department of Internal Medicine [address] [place] [phone] Casimiro Wasserman MD Social History Tobacco Use [...] PM EST Office Visit [facility] [place] 7 [facility] [address] [place] [address] Nancy Pineda APRN 31 [facility] 100 [place] [address] 03/10/2025 2:45 PM EST Office Visit [facility] Plastic & Reconstructive Surgery [place] 399 [facility] [address] [place] [address] Josephine Lovelace MD 399 [facility] [address] [place] [address] documented as of this encounter Visit Diagnoses Not on filedocumented in this encounter Care Teams Machine Tool Technology Instructor Relationship Specialty Start Date End Date Casimiro Wasserman MD PCP - General 05/09/24 Margot Palomares, YAHIR [address] [place] [address] PCP - General Internal Medicine 05/10/24 documented as of this encounter
--- OUTSIDE RECORDS SUMMARY | 2025-02-11 05:50 | XMS_ITS | Encounter Summary ---
Author Organization [facility]ly [facility] Address [address] [place] [address] Care Team Providers Care Shipyard Supervisor Name Role Phone Margot Palomares APRN Primary Care Provider [phone] Encounter Details Date Type Department Care Team (Late st Contact Info) Description 10/21/2024 Scanned [place] [address] Bethany Thorne [address] [place] [address] Social History Tobacco Use Types Packs/Day Years [...] 3:30 PM EST [facility] [address] [address] Nancy Pineda APRN [address] [address] 03/10/2025 2:45 PM EST Office Visit [facility] Plastic & Reconstructive Surgery [place] [address] [facility] [address] [place] [address] Josephine Lovelace MD 399 [facility] [address] [place] [address] documented as of this encounter Visit Diagnoses Not on filedocumented in this encounter Care Teams Shipyard Supervisor Relationship Specialty Start Date End Date Margot Palomares, YAHIR [address] [place] [address] PCP - General Internal Medicine 05/10/24 documented as of this encounter
--- OUTSIDE RECORDS SUMMARY | 2025-02-11 05:50 | XMS_ITS | Encounter Summary ---
Author Organization [facility] Address [address] [place] [address] Care Team Providers Care Land Surveying Survey Worker Name Role Phone Margot Palomares APRN Primary Care Provider [phone] Encounter Details Date Type Department Care Team (Late Contact Info) Description 10/25/2024 [place] [address] Davide Bishop MD [address] [place] [address] Social History Tobacco Use Types Packs/Day Years [...] 3:30 PM EST Office [facility] [address] Nancy Pineda APRN [address] [address] 03/10/2025 2:45 PM EST Office Visit [facility] Plastic & Reconstructive Surgery [place] [address] [facility] [address] [place] [address] Josephine Lovelace MD 399 [facility] [address] [place] [address] documented as of this encounter Visit Diagnoses Not on filedocumented in this encounter Care Teams Land Surveying Survey Worker Relationship Specialty Start Date End Date Margot Palomares, YAHIR [address] [place] [address] PCP - General Internal Medicine 05/10/24 documented as of this encounter
--- OUTSIDE RECORDS SUMMARY | 2025-02-11 05:50 | XMS_ITS | Encounter Summary ---
Author Organization [facility] Address [address] [place] [address] Care Team Providers Care Director Of Event Marketing Name Role Phone Casimiro Wasserman MD Primary Care Provider Unavail able Margot Palomares APRN Primary Care Provider [phone] Encounter Details Date Type Department Care Team (Late st Contact Info) Description 04/17/2023 Scanned Document [facility] Physicians Department of Ear, Nose, and Throat [address] [address] Haroon Barrett MD [address] [place] [address] Social History Tobacco Use Types Packs/Day Years [...] PM EST [facility] [address] [place] [address] Nancy Pineda APRN [address] [address] 03/10/2025 2:45 PM EST Office Visit [facility] Plastic & Reconstructive Surgery [place] 399 [facility] 210 [place] [address] Josephine Lovelace MD [address] [facility] [address] [place] [address] documented as of this encounter Visit Diagnoses Not on filedocumented in this encounter Care Teams Director Of Event Marketing Relationship Specialty Start Date End Date Casimiro Wasserman MD PCP - General 05/09/24 Margot Palomares APRN [address] [place] [address] PCP - General Internal Medicine 05/10/24 documented as of this encounter
--- OUTSIDE RECORDS SUMMARY | 2025-02-11 05:50 | XMS_ITS | Clinical Summary ---
Author Organization [facility] Address [address] [place] [address] Phone Care Team Providers Care Suspender Cutter Name Role Phone Unavailable Primary Care Provider Unavailabl e Social History Tobacco Use Types Packs/Day Years Used Date Smoking Tobacco: Never Assessed Comments Unknown Sex and Gender Information Value Date Recorded Sex Assigned at Not on file Legal Sex Unknown 05/28/2023 5:36 AM EDT Gender Identity Not on file Sexual Orientation Not on file Plan of Treatment Health Maintenance Due Date Last Done Comments Chlamydia and Gonorrhea Screening 1995 HIV Screening 1995 MMR Vaccines (1 of 1 - Standard series) 08/12/1996 Anemia Screening 2007 Varicella Vaccines (1 of 2 - 13+ 2-dose series) 08/12/2008 Hepatitis C Screening 08/12/2013 DTaP/Tdap/Td Vaccines (2 - T d or Tdap) 02/15/2020 01/18/2020 Hepatitis B Vaccines (3 of 3 - 19+ 3-dose series) 01/11/2021 08/15/2020, 07/11/2020 COVID-19 Vaccine (2024-2 6 season) 2024 02/28/2021, 05/26/2020, 05/01/2020 Influenza Vaccine (#1) 2024 2, 10/26/2020, 11/26/2018 HIB Vaccines Aged Out No longer eligi ble based on patient's age to complete this topic HPV Vaccines (No Doses Required) Completed Hepatitis A Vaccines Aged Out No long er eligible based on patient's age to complete this topic IPV Vaccines Aged Out No longer eligi ble based on patient's age to complete this topic Meningococcal B Vaccine Aged Out No l onger eligible based on patient's age to complete this topic Meningococcal Vaccine Aged Out No aguila santana eligible based on patient's age to complete this topic Pneumococcal Vaccine: Pediatrics (0 to 5 Years) and At-Risk Patients (6 to 49 Years) Aged Out No longer eligible b ased on patient's age to complete this topic Rotavirus Vaccines Aged Out No longer eligible based on patient's age to complete this topic Insurance Member Subscriber Plan / Payer (Ef fective 2022-Present) Name:Cielo Valentine Relation to Subscriber:Self Name:Cielo Valentine Payer ID:Not on file Group ID:Not on file Type:Not on file Address: [address] [facility]
--- OUTSIDE RECORDS SUMMARY | 2025-02-11 05:50 | XMS_ITS | Encounter Summary ---
Author Organization [facility] Address [address] [place] [address] Care Team Providers Care Peripheral Edp Equipment Operator Name Role Phone Casimiro Wasserman MD Primary Care Provider Unavail able Margot Palomares APRN Primary Care Provider [phone] Encounter Details Date Type Department Care Team (Late st Contact Info) Description 05/22/2023 Scanned Document [facility] Physicians Department of Internal Medicine [address] [place] [phone] Casimiro Wasserman MD Social History Tobacco Use [...] PM EST Office Visit [facility] [place] 7 [facility] [address] [place] [address] Nancy Pineda APRN 31 [facility] 100 [place] [address] 03/10/2025 2:45 PM EST Office Visit [facility] Plastic & Reconstructive Surgery [place] 399 [facility] [address] [place] [address] Josephine Lovelace MD 399 [facility] [address] [place] [address] documented as of this encounter Visit Diagnoses Not on filedocumented in this encounter Care Teams Peripheral Edp Equipment Operator Relationship Specialty Start Date End Date Casimiro Wasserman MD PCP - General 05/09/24 Margot Palomares, YAHIR [address] [place] [address] PCP - General Internal Medicine 05/10/24 documented as of this encounter
--- OUTSIDE RECORDS SUMMARY | 2025-02-11 05:50 | XMS_ITS | Encounter Summary ---
Author Organization [facility] Address [address] [place] [address] Care Team Providers Care Bird Raiser Name Role Phone Casimiro Wasserman MD Primary Care Provider Unavail able Margot Palomares APRN Primary Care Provider [phone] Encounter Details Date Type Department Care Team (Late st Contact Info) Description 06/28/2022 Scanned Document [facility] Department of Internal Medicine [address] [place] [phone] Casimiro Wasserman MD Social History Tobacco Use [...] PM EST Office Visit [facility] [place] 7 [facility] [address] [place] [address] Nancy Pineda APRN [address] [facility] 100 [place] [address] 03/10/2025 2:45 PM EST Office Visit [facility] Plastic & Reconstructive Surgery [place] 399 [facility] [address] [place] [address] Josephine Lovelace MD 399 [facility] [address] [place] [address] documented as of this encounter Visit Diagnoses Not on filedocumented in this encounter Care Teams Bird Raiser Relationship Specialty Start Date End Date Casimiro Wasserman MD PCP - General 05/09/24 Margot Palomares, YAHIR [address] [place] [address] PCP - General Internal Medicine 05/10/24 documented as of this encounter
--- OUTSIDE RECORDS SUMMARY | 2025-02-11 05:50 | XMS_ITS | Encounter Summary ---
Author Organization [facility] Address [address] [place] [address] Care Team Providers Care Affirmative Action Specialist Name Role Phone Casimiro Wasserman MD Primary Care Provider Unavail able Margot Palomares APRN Primary Care Provider [phone] Encounter Details Date Type Department Care Team (Late st Contact Info) Description 07/28/2023 Scanned Document [facility] Physicians Department of Internal Medicine [address] [place] [phone] Casimiro Wasserman MD Social History Tobacco Use [...] PM EST Office Visit [facility] [place] 7 [facility] [address] [place] [address] Nancy Pineda APRN 31 [facility] 100 [place] [address] 03/10/2025 2:45 PM EST Office Visit [facility] Plastic & Reconstructive Surgery [place] 399 [facility] [address] [place] [address] Josephine Lovelace MD 399 [facility] [address] [place] [address] documented as of this encounter Visit Diagnoses Not on filedocumented in this encounter Care Teams Affirmative Action Specialist Relationship Specialty Start Date End Date Casimiro Wasserman MD PCP - General 05/09/24 Margot Palomares, YAHIR [address] [place] [address] PCP - General Internal Medicine 05/10/24 documented as of this encounter
--- OUTSIDE RECORDS SUMMARY | 2025-02-11 05:50 | XMS_ITS | Encounter Summary ---
Author Organization [facility] Address [address] [place] [address] Care Team Providers Care Organ Recovery Coordinator Name Role Phone Casimiro Wasserman MD Primary Care Provider Unavail able Margot Palomares APRN Primary Care Provider [phone] Encounter Details Date Type Department Care Team (Late st Contact Info) Description 08/08/2023 Scanned Document [facility] Department of Internal Medicine [address] [place] [phone] Casimiro Wasserman MD Social History Tobacco Use [...] PM EST Office Visit [facility] [place] 7 [facility] [address] [place] [address] Nancy Pineda APRN 31 [facility] 100 [place] [address] 03/10/2025 2:45 PM EST Office Visit [facility] Plastic & Reconstructive Surgery [place] 399 [facility] [address] [place] [address] Josephine Lovelace MD 399 [facility] [address] [place] [address] documented as of this encounter Visit Diagnoses Not on filedocumented in this encounter Care Teams Organ Recovery Coordinator Relationship Specialty Start Date End Date Casimiro Wasserman MD PCP - General 05/09/24 Margot Palomares, YAHIR [address] [place] [address] PCP - General Internal Medicine 05/10/24 documented as of this encounter
--- OUTSIDE RECORDS SUMMARY | 2025-02-11 05:50 | XMS_ITS | Encounter Summary ---
Author Organization [facility] Address [address] [place] [address] Care Team Providers Care [id number] Armor Crewman Name Role Phone Casimiro Wasserman MD Primary Care Provider Unavail able Margot Palomares APRN Primary Care Provider [phone] Encounter Details Date Type Department Care Team (Late st Contact Info) Description 09/25/2023 Scanned Document [facility] Physicians Department of Internal Medicine [address] [place] [phone] Casimiro Wasserman MD Social History Tobacco Use [...] PM EST Office Visit [facility] [place] 7 [facility] [address] [place] [address] Nancy Pineda APRN 31 [facility] 100 [place] [address] 03/10/2025 2:45 PM EST Office Visit [facility] Plastic & Reconstructive Surgery [place] 399 [facility] [address] [place] [address] Josephine Lovelace MD 399 [facility] [address] [place] [address] documented as of this encounter Visit Diagnoses Not on filedocumented in this encounter Care Teams [id number] Armor Crewman Relationship Specialty Start Date End Date Casimiro Wasserman MD PCP - General 05/09/24 Margot Palomares, YAHIR [address] [place] [address] PCP - General Internal Medicine 05/10/24 documented as of this encounter
--- OUTSIDE RECORDS SUMMARY | 2025-02-11 05:50 | XMS_ITS | Encounter Summary ---
Author Organization [facility] Address [address] [place] [address] Care Team Providers Care Winding Inspector Name Role Phone Casimiro Wasserman MD Primary Care Provider Unavail able Margot Palomares APRN Primary Care Provider [phone] Encounter Details Date Type Department Care Team (Late st Contact Info) Description 06/05/2022 Scanned Document [facility] Department of Internal Medicine [address] [phone] Casimiro Wasserman MD Social History Tobacco Use [...] PM EST Office Visit [facility] [address] [place] [address] Nancy Pineda APRN 31 [facility] 100 [place] [address] 03/10/2025 2:45 PM EST Office Visit [facility] Plastic & Reconstructive Surgery [place] 399 [facility] [address] [place] [address] Josephine Lovelace MD 399 [facility] [address] [place] [address] documented as of this encounter Visit Diagnoses Not on filedocumented in this encounter Care Teams Winding Inspector Relationship Specialty Start Date End Date Casimiro Wasserman MD PCP - General 05/09/24 Margot Palomares, YAHIR [address] [place] [address] PCP - General Internal Medicine 05/10/24 documented as of this encounter
--- OUTSIDE RECORDS SUMMARY | 2025-02-11 05:50 | XMS_ITS | Encounter Summary ---
Author Organization [facility] Address [address] [place] [address] Care Team Providers Care Double End Tenon Operator Name Role Phone Casimiro Wasserman MD Primary Care Provider Unavail able Margot Palomares APRN Primary Care Provider [phone] Encounter Details Date Type Department Care Team (Late st Contact Info) Description 04/30/2023 Scanned Document [facility] Department of Internal Medicine [address] [phone] Casimiro Wasserman MD Social History Tobacco Use [...] PM EST [facility] Visit [facility] [address] [place] [address] Nancy Pineda APRN 31 [facility] 100 [place] [address] 03/10/2025 2:45 PM EST Office Visit [facility] Plastic & Reconstructive Surgery [place] 399 [facility] [address] [place] [address] Josephine Lovelace MD [address] [place] [address] documented as of this encounter Visit Diagnoses Not on filedocumented in this encounter Care Teams Double End Tenon Operator Relationship Specialty Start Date End Date Casimiro Wasserman MD PCP - General 05/09/24 Margot Palomares, YAHIR [address] [place] [address] PCP - General Internal Medicine 05/10/24 documented as of this encounter
--- OUTSIDE RECORDS SUMMARY | 2025-02-11 05:50 | XMS_ITS | Clinical Summary ---
Author Organization [facility] Prior to 07/17/24 Address [address] [place] [address] Care Team Providers Care Character Actress Name Role Phone Casimiro Wasserman MD Primary Care Provider Unavail able Medications No known medications Social History Tobacco Use Types Packs/Day Years Used Date Smoking Tobacco: Never Assessed Sex and Gender Information Value Date Recorded Sex Assigned at Not on file Gender Identity Not on file Sexual Orientation Not on file Job Start Date Occupation Industry Not on file Not on file Not on file Last Filed Vital Signs Vital Sign Reading Time Taken Comments Blood Pressure 122/70 10/17/2020 1:29 PM EDT Pulse 88 10/17/2020 1:29 PM EDT Temperature - - Respiratory Rate - - Oxygen Saturation 98% 10/17/2020 1:29 PM EDT Inhaled Oxygen Concentration - - Weight 109.9 kg (242 lb 3.2 oz) 10/17/2020 1:29 PM EDT Height - - Body Mass Index - - Plan of Treatment Health Maintenance Due Date Last Done Comments Hepatitis B Vaccines (1 of 3 - 3-dose series) 1995 Hepatitis C Screening 1995 COVID-19 Vaccine (#1) 02/12/1996 Depression Screening 2007 Preventative Health Evaluation 08/12/2013 DTap / Tdap / Td (1 - Tdap) 08/12/2014 Cervical Cancer Screening (P ap Smear) 08/12/2016 Influenza Vaccine (#1) 2024 Pneumococcal Vaccine Aged Out No long er eligible based on patient's age to complete this topic RSV Ped < 20 months Aged Out No longe r eligible based on patient's age to complete this topic Care Teams Character Actress Relationship Specialty Start Date End Date Casimiro Wasserman MD PCP - General Internal Medicine 08/30/20
--- OUTSIDE RECORDS SUMMARY | 2025-02-11 05:50 | XMS_ITS | Encounter Summary ---
Author Organization [facility] Address [address] [place] [address] Care Team Providers Care Paint Roller Assembler Name Role Phone Casimiro Wasserman MD Primary Care Provider Unavail able Margot Palomares APRN Primary Care Provider [phone] Encounter Details Date Type Department Care Team (Late st Contact Info) Description 07/18/2023 Scanned Document [facility] Department of Internal Medicine [address] [place] [phone] Casimiro Wasserman MD Social History Tobacco Use [...] PM EST Office Visit [facility] [place] 7 [facility] [address] [place] [address] Nancy Pineda APRN 31 [facility] 100 [place] [address] 03/10/2025 2:45 PM EST Office Visit [facility] Plastic & Reconstructive Surgery [place] 399 [facility] [address] [place] [address] Josephine Lovelace MD 399 [facility] [address] [place] [address] documented as of this encounter Visit Diagnoses Not on filedocumented in this encounter Care Teams Paint Roller Assembler Relationship Specialty Start Date End Date Casimiro Wasserman MD PCP - General 05/09/24 Margot Palomares, YAHIR [address] [place] [address] PCP - General Internal Medicine 05/10/24 documented as of this encounter
--- OUTSIDE RECORDS SUMMARY | 2025-02-11 05:50 | XMS_ITS | Encounter Summary ---
Author Organization [facility] Address [address] [place] [address] Care Team Providers Care Outside Salesman Name Role Phone Casimiro Wasserman MD Primary Care Provider Unavail able Margot Palomares APRN Primary Care Provider [phone] Encounter Details Date Type Department Care Team (Late st Contact Info) Description 05/01/2023 Scanned Document [facility] Department of Internal Medicine [address] [place] [phone] Casimiro Wasserman MD Social History Tobacco Use [...] PM EST Office Visit [facility] [place] 7 [facility] [address] [place] [address] Nancy Pineda APRN 31 [facility] 100 [place] [address] 03/10/2025 2:45 PM EST Office Visit [facility] Plastic & Reconstructive Surgery [place] 399 [facility] [address] [place] [address] Josephine Lovelace MD 399 [facility] [address] [place] [address] documented as of this encounter Visit Diagnoses Not on filedocumented in this encounter Care Teams Outside Salesman Relationship Specialty Start Date End Date Casimiro Wasserman MD PCP - General 05/09/24 Margot Palomares, YAHIR [address] [place] [address] PCP - General Internal Medicine 05/10/24 documented as of this encounter
--- OUTSIDE RECORDS SUMMARY | 2025-02-11 05:50 | XMS_ITS | Encounter Summary ---
Author Organization [facility] Address [address] [place] [address] Care Team Providers Care Qa Specialist Name Role Phone Casimiro Wasserman MD Primary Care Provider Unavail able Margot Palomares APRN Primary Care Provider [phone] Encounter Details Date Type Department Care Team (Late st Contact Info) Description 10/22/2023 Scanned Document [facility] Physicians Department of Internal Medicine [place] [address] [place] [phone] Jonas Cavazos MD [address] [place] [address] Social History Tobacco Use Types Packs/Day Years [...] EST Office Visit [facility] [address] [place] [address] Nancy Pineda APRN 31 [facility] 100 [place] [address] 03/10/2025 2:45 PM EST Office Visit [facility] Plastic & Reconstructive Surgery [place] 399 [facility] 210 [place] [address] Josephine Lovelace MD 399 [facility] 210 [place] [address] documented as of this encounter Visit Diagnoses Not on filedocumented in this encounter Care Teams Qa Specialist Relationship Specialty Start Date End Date Casimiro Wasserman MD PCP - General 05/09/24 Margot Palomares, YAHIR [address] [place] [address] PCP - General Internal Medicine 05/10/24 documented as of this encounter
--- OUTSIDE RECORDS SUMMARY | 2025-02-11 05:50 | XMS_ITS | Encounter Summary ---
Author Organization [facility] Address [address] [place] [address] Care Team Providers Care Telephone Coin Box Collector Name Role Phone Margot Palomares APRN Primary Care Provider [phone] Encounter Details Date Type Department Care Team (Late st Contact Info) Description 10/15/2024 Scanned Document [facility] Department of Internal Medicine [address] [place] [phone] Margot Palomares, ENVIRONMENTAL SERVICES FLOOR TECH [address] [place], [place] [address] Social History Tobacco Use Types Packs/Day Years [...] PM EST Office Visit [facility] [address] [place] [address] Nancy Pineda APRN [address] [address] 03/10/2025 2:45 PM EST Office Visit [facility] Plastic & Reconstructive Surgery [place] 399 [facility] 210 [place] [address] Josephine Lovelace MD 399 [facility] [address] [place] [address] documented as of this encounter Visit Diagnoses Not on filedocumented in this encounter Care Teams Telephone Coin Box Collector Relationship Specialty Start Date End Date Margot Palomares APRN [address] [place] [address] PCP - General Internal Medicine 05/10/24 documented as of this encounter
--- OUTSIDE RECORDS SUMMARY | 2025-02-11 05:50 | XMS_ITS | Encounter Summary ---
Author Organization [facility] Address [address] [place] [address] Care Team Providers Care Kettle Chipper Name Role Phone Casimiro Wasserman MD Primary Care Provider Unavail able Margot Palomares APRN Primary Care Provider [phone] Encounter Details Date Type Department Care Team (Late st Contact Info) Description 06/22/2022 Scanned Document [facility] Physicians Department of Internal Medicine [address] [place] [id number] Casimiro Wasserman MD Social History Tobacco Use [...] PM EST Office Visit [facility] [address] [facility] [address] [place] [address] Nancy Pineda APRN [address] [facility] [address] [place] [address] 03/10/2025 2:45 PM EST Office Visit [facility] Plastic & Re[facility]ive [facility] [place] [address] [facility] [address] [place] [address] Josephine Lovelace MD [address] [facility] [address] [place] [address] documented as of this encounter Visit Diagnoses Not on filedocumented in this encounter Care Teams Kettle Chipper Relationship Specialty Start Date End Date Casimiro Wasserman MD PCP - General 05/09/24 Margot Palomares, YAHIR [address] [place] [address] PCP - General Internal Medicine 05/10/24 documented as of this encounter
--- OUTSIDE RECORDS SUMMARY | 2025-02-11 05:50 | XMS_ITS | Encounter Summary ---
Author Organization [facility] Address [address] [place] [address] Care Team Providers Care Scientific Advisor Name Role Phone Casimiro Wasserman MD Primary Care Provider Unavail able Margot Palomares APRN Primary Care Provider [phone] Encounter Details Date Type Department Care Team (Late st Contact Info) Description 04/17/2023 Scanned Document [facility] Physicians Department of Ear, Nose, and Throat [address] [phone] Haroon Barrett MD [address] [place] [phone] Social History Tobacco Use Types Packs/Day Years [...] PM EST Office Visit [facility] [address] [place] [id number] Nancy Pineda APRN [address] [address] 03/10/2025 2:45 PM EST Office Visit [facility] Plastic & Reconstructive Surgery [place] [address] [facility] [address] [place] [address] Josephine Lovelace MD [address] [facility] [address] [place] [address] documented as of this encounter Visit Diagnoses Not on filedocumented in this encounter Care Teams Scientific Advisor Relationship Specialty Start Date End Date Casimiro Wasserman MD PCP - General 05/09/24 Margot Palomares APRN [address] [place] [id number] PCP - General Internal Medicine 05/10/24 documented as of this encounter
[2025-02-11] MEDS: Albuterol Sulfate 2.5 MG, Albuterol/Iprat 2.5/0.5MG 3 ML 3 ML INHALE (06:29)
[2025-02-11 06:30] VITALS: PULSE 78; RESP 18; O2SAT 99
[2025-02-11 06:32] VITALS: BP 122/71; PULSE 88; RESP 16; TEMP 36.6; O2SAT 100
[2025-02-11 07:58] LABS: MANUAL DIFF FLAG NO
[2025-02-11 07:59] LABS: White Blood Count 8.0 X10*3/uL (4.8-10.8)
[2025-02-11 08:00] LABS: Hematocrit 35.6 % (37.0-47.0); Hemoglobin 11.6 g/dl (12.0-16.0); Imm Gran Abs Auto 0.02 X10*3/uL (0.00-0.03); Imm Gran Pct Auto 0.2 % (0.0-0.4); Lymphocytes Absolute Auto 2.3 X10*3/uL (1.2-4.9); Mean Corpuscular HGB Conc 32.6 g/dl (31.0-35.0); Mean Corpuscular Hemoglobin 28.6 pg (27.0-33.0); Mean Corpuscular Volume 87.7 fL (80.0-98.0); NRBC Abs Auto 0.000 X10*3/uL (0.0-0.012); NRBC Pct Auto 0.0 /100WBC (0.0-0.2); Platelet Count 192 X10*3/uL (160-400); Red Blood Count 4.06 X10*6/uL (4.20-5.50)
[2025-02-11 08:14] LABS: D Dimer High Sensitivity 357 NG/ML
[2025-02-11 08:17] VITALS: BP 105/49; PULSE 100; RESP 14; TEMP 36.8; O2SAT 98
[2025-02-11 08:26] LABS: Troponin-I High Sensitivity < 2.7 ng/L (<3.5-17.0)
[2025-02-11 08:28] LABS: Alanine Aminotransferase 39 U/L (0-31); Albumin Level 4.0 g/dL (3.5-5.0); Alkaline Phosphatase 50 U/L (39-117); Anion Gap 10 (12-20); Aspartate Amino Transferase 26 U/L (5-31); Blood Urea Nitrogen 10 mg/dL (9-16); Calcium 8.5 mg/dL (8.4-10.2); Carbon Dioxide 22 mmol/L (22-29); Chloride 112 mmol/L (96-108); Creatinine Clr Calc Pharmacy 135.4; Estimated Glomerular Filt Rate > 60; Magnesium 1.7 mg/dL (1.6-2.6); Potassium 2.9 mmol/L (3.3-5.1); Sodium 141 mmol/L (135-145); Total Protein 6.2 g/dL (6.5-8.0)
--- NOTE | 2025-02-11 09:05 | PC.NURSE ---
Pt has been resting quietly since this RN arrival. LS CTA. unlabored resp. Reports feeling better after treatment and meds. Skin PWD. NAD.
[2025-02-11] MEDS: Potassium Chloride Packet 20 MEQ PACKET 40 MEQ PO (09:20)
[2025-02-11] MEDS: Potassium Chloride ER 10 MEQ TABLET.ER PO (09:20)
[2025-02-11] MEDS: iohexoL 350 MG/ML 100 ML INFUS..BTL IV (10:44)
[2025-02-11 11:40] VITALS: BP 115/56; PULSE 118; RESP 16; TEMP 37.1; O2SAT 99
== END 2025-02-11 11:47 | disposition home or self-care (01) ==
PROVIDERS: Emergency Medicine; Emergency Provider Emergency Medicine
DX: R06.00 Dyspnea, unspecified (principal); E87.6 Hypokalemia; R06.02 Shortness of breath; Z03.818 Encounter for observation for suspected exposure to other biological agents ruled out; F41.9 Anxiety disorder, unspecified; Z79.899 Other long term (current) drug therapy
CPT/HCPCS: 36415; 71046; 71275; 80053; 83735; 84443; 84484; 84702; 85025; 85379; 87637; 93005; 94640; 99284; 99285; Q9967

== ENCOUNTER → 2025-02-11 03:32 | Outpatient (BNV) | payer OTHER, SELFPAY | PROVIDERS: Emergency Provider Emergency Medicine; Visit Provider Radiology Diagnostic Radiology | DX: R06.00 Dyspnea, unspecified (principal); R06.02 Shortness of breath | CPT/HCPCS: 71046; 71275 ==

== ENCOUNTER → 2025-02-11 04:36 | Outpatient (BNV) | payer OTHER, SELFPAY | PROVIDERS: Emergency Provider Emergency Medicine; Visit Provider Internal Medicine Cardiovascular Disease | DX: R06.02 Shortness of breath (principal) | CPT/HCPCS: 93010 ==